=== PATIENT | female | born 1935 | race Caucasian/White ===

== ENCOUNTER → 2016-07-04 | Outpatient (CLI) | payer MEDICARE, MEDICAID ==
[2016-07-04 12:18] LABS: ABSOLUTE EOSINOPHILS # (AUTO) 0.2 10^3/uL (0.0-0.6); ABSOLUTE MONOCYTES (AUTO) 0.5 10^3/uL (0.1-1.4); ABSOLUTE NEUT (AUTO) 3.9 10^3/uL (1.7-8.2); BASOPHILS % (AUTO) 0.5 % (0-2); EOSINOPHILS % (AUTO) 3.1 % (0-6); HEMATOCRIT 31.1 % (36.0-47.0); HEMOGLOBIN 10.6 g/dL (12.0-15.5); HGB HCT DIFFERENCE 0.7; LYMPHOCYTES % (AUTO) 17.2 % (13-45); MEAN CORPUSCULAR HEMOGLOBIN 31.2 pg (27.0-33.4); MEAN CORPUSCULAR HGB CONC 34.1 g/dL (32.0-36.0); MEAN CORPUSCULAR VOLUME 92 fl (80-97); MONOCYTES % (AUTO) 9.6 % (3-13); RED CELL DISTRIBUTION WIDTH 14.6 % (11.5-14.0); SEGMENTED NEUTROPHILS % (AUTO) 69.6 % (42-78); WHITE BLOOD COUNT 5.7 10^3/uL (4.0-10.5)
[2016-07-04 12:22] LABS: APPEARANCE,URINE SLIGHTLY-CLOUDY; BILIRUBIN,URINE NEGATIVE (NEGATIVE); GLUCOSE, URINE >=500 mg/dL (NEGATIVE); KETONES,URINE NEGATIVE (NEGATIVE); LEUKOCYTE ESTERASE,URINE MODERATE (NEGATIVE); NITRITE,URINE NEGATIVE (NEGATIVE); PROTEIN,URINE NEGATIVE (NEGATIVE); URINE SPECIFIC GRAVITY 1.009; UROBILINOGEN,URINE NEGATIVE mg/dL (<2.0)
[2016-07-04 12:38] LABS: ANION GAP 11 (5-19); BLOOD UREA NITROGEN 36 mg/dL (7-20); CARBON DIOXIDE 23 mmol/L (22-30); CHLORIDE 108 mmol/L (98-107); CREATININE RESULT 1.73 mg/dL (0.52-1.25); GLUCOSE 209 mg/dL (75-110); POTASSIUM 4.6 mmol/L (3.6-5.0); SODIUM 142.1 mmol/L (137-145)
[2016-07-05 11:40] LABS: CREATININE URINE 58.8 mg/dL (Not Estab.); MICROALBUMIN URINE 31.3 ug/mL (Not Estab.)
== END ==
LOC: OD 11:17
PROVIDERS: ATTEND Internal Medicine Nephrology
DX: I12.9 Hypertensive chronic kidney disease with stage 1 through stage 4 chronic kidney disease, or unspecified chronic kidney disease (principal); N18.4 Chronic kidney disease, stage 4 (severe); D63.8 Anemia in other chronic diseases classified elsewhere
CPT/HCPCS: 36415; 80048; 81001; 82043; 82570; 85025

== ENCOUNTER → 2016-11-02 | Outpatient (CLI) | payer MEDICARE, MEDICAID ==
[2016-11-02 11:02] LABS: ABSOLUTE BASOPHILS # (AUTO) 0.1 10^3/uL (0.0-0.2); ABSOLUTE EOSINOPHILS # (AUTO) 0.2 10^3/uL (0.0-0.6); ABSOLUTE MONOCYTES (AUTO) 0.5 10^3/uL (0.1-1.4); ABSOLUTE NEUT (AUTO) 3.6 10^3/uL (1.7-8.2); BASOPHILS % (AUTO) 1.1 % (0-2); EOSINOPHILS % (AUTO) 3.1 % (0-6); HEMATOCRIT 33.8 % (36.0-47.0); HEMOGLOBIN 10.9 g/dL (12.0-15.5); HGB HCT DIFFERENCE -1.1; LYMPHOCYTES % (AUTO) 19.5 % (13-45); MEAN CORPUSCULAR HGB CONC 32.2 g/dL (32.0-36.0); MEAN CORPUSCULAR VOLUME 93 fl (80-97); RED BLOOD COUNT 3.64 10^6/uL (3.72-5.28); RED CELL DISTRIBUTION WIDTH 13.9 % (11.5-14.0); SEGMENTED NEUTROPHILS % (AUTO) 66.3 % (42-78); WHITE BLOOD COUNT 5.4 10^3/uL (4.0-10.5)
[2016-11-02 11:06] LABS: APPEARANCE,URINE CLEAR; BILIRUBIN,URINE NEGATIVE (NEGATIVE); GLUCOSE, URINE 150 mg/dL (NEGATIVE); KETONES,URINE NEGATIVE (NEGATIVE); LEUKOCYTE ESTERASE,URINE TRACE (NEGATIVE); NITRITE,URINE NEGATIVE (NEGATIVE); PROTEIN,URINE NEGATIVE (NEGATIVE); UROBILINOGEN,URINE NEGATIVE mg/dL (<2.0)
[2016-11-02 11:07] LABS: URINE SPECIFIC GRAVITY 1.012
[2016-11-02 11:34] LABS: ANION GAP 11 (5-19); BLOOD UREA NITROGEN 30 mg/dL (7-20); CALCIUM 9.1 mg/dL (8.4-10.2); CARBON DIOXIDE 26 mmol/L (22-30); CHLORIDE 104 mmol/L (98-107); CREATININE RESULT 1.61 mg/dL (0.52-1.25); GLUCOSE 199 mg/dL (75-110); POTASSIUM 4.4 mmol/L (3.6-5.0); SODIUM 140.8 mmol/L (137-145)
[2016-11-03 11:39] LABS: CREATININE URINE 87.1 mg/dL (Not Estab.); MICROALBUMIN URINE 46.9 ug/mL (Not Estab.)
== END ==
LOC: OD 09:41
PROVIDERS: ATTEND Internal Medicine Nephrology
DX: N18.4 Chronic kidney disease, stage 4 (severe) (principal); D63.8 Anemia in other chronic diseases classified elsewhere; R80.9 Proteinuria, unspecified
CPT/HCPCS: 36415; 80048; 81001; 82043; 82570; 85025

== ENCOUNTER → 2017-03-09 | Outpatient (CLI) | payer MEDICARE, MEDICAID ==
[2017-03-09 11:00] LABS: ABSOLUTE EOSINOPHILS # (AUTO) 0.2 10^3/uL (0.0-0.6); ABSOLUTE LYMPHOCYTES (AUTO) 1.1 10^3/uL (0.5-4.7); ABSOLUTE MONOCYTES (AUTO) 0.5 10^3/uL (0.1-1.4); ABSOLUTE NEUT (AUTO) 3.2 10^3/uL (1.7-8.2); BASOPHILS % (AUTO) 0.5 % (0-2); EOSINOPHILS % (AUTO) 3.6 % (0-6); HEMATOCRIT 33.1 % (36.0-47.0); HEMOGLOBIN 11.4 g/dL (12.0-15.5); HGB HCT DIFFERENCE 1.1; LYMPHOCYTES % (AUTO) 22.4 % (13-45); MEAN CORPUSCULAR HEMOGLOBIN 31.6 pg (27.0-33.4); MEAN CORPUSCULAR HGB CONC 34.5 g/dL (32.0-36.0); MEAN CORPUSCULAR VOLUME 92 fl (80-97); MONOCYTES % (AUTO) 10.2 % (3-13); RED BLOOD COUNT 3.61 10^6/uL (3.72-5.28); RED CELL DISTRIBUTION WIDTH 14.1 % (11.5-14.0); SEGMENTED NEUTROPHILS % (AUTO) 63.3 % (42-78)
[2017-03-09 11:06] LABS: APPEARANCE,URINE SLIGHTLY-CLOUDY; BILIRUBIN,URINE NEGATIVE (NEGATIVE); GLUCOSE, URINE NEGATIVE (NEGATIVE); KETONES,URINE NEGATIVE (NEGATIVE); LEUKOCYTE ESTERASE,URINE NEGATIVE (NEGATIVE); NITRITE,URINE NEGATIVE (NEGATIVE); PROTEIN,URINE NEGATIVE (NEGATIVE); UROBILINOGEN,URINE NEGATIVE mg/dL (<2.0)
[2017-03-09 11:35] LABS: ALBUMIN 3.8 g/dL (3.5-5.0); ANION GAP 12 (5-19); BLOOD UREA NITROGEN 28 mg/dL (7-20); CARBON DIOXIDE 25 mmol/L (22-30); CHLORIDE 107 mmol/L (98-107); CREATININE RESULT 1.71 mg/dL (0.52-1.25); GLUCOSE 134 mg/dL (75-110); PHOSPHORUS 2.9 mg/dL (2.5-4.5); POTASSIUM 4.5 mmol/L (3.6-5.0); SODIUM 143.5 mmol/L (137-145)
[2017-03-10 12:59] LABS: VITAMIN D 25-HYDROXY 41.6 ng/mL (30.0-100.0)
[2017-03-10 14:38] LABS: MICROALBUMIN URINE 49.7 ug/mL (Not Estab.)
== END ==
LOC: OD 09:50
PROVIDERS: ATTEND Internal Medicine Nephrology
DX: N18.4 Chronic kidney disease, stage 4 (severe) (principal); R80.9 Proteinuria, unspecified; D63.8 Anemia in other chronic diseases classified elsewhere
CPT/HCPCS: 36415; 80048; 81001; 82040; 82043; 82306; 82570; 83970; 84100; 85025

== ENCOUNTER → 2017-09-10 | Outpatient (CLI) | payer MEDICARE, MEDICAID ==
[2017-09-10 12:56] LABS: ABSOLUTE EOSINOPHILS # (AUTO) 0.3 10^3/uL (0.0-0.6); ABSOLUTE LYMPHOCYTES (AUTO) 1.2 10^3/uL (0.5-4.7); ABSOLUTE MONOCYTES (AUTO) 0.6 10^3/uL (0.1-1.4); ABSOLUTE NEUT (AUTO) 3.1 10^3/uL (1.7-8.2); BASOPHILS % (AUTO) 0.9 % (0-2); HEMATOCRIT 31.3 % (36.0-47.0); HEMOGLOBIN 10.6 g/dL (12.0-15.5); LYMPHOCYTES % (AUTO) 23.3 % (13-45); MEAN CORPUSCULAR HEMOGLOBIN 31.2 pg (27.0-33.4); MEAN CORPUSCULAR HGB CONC 33.8 g/dL (32.0-36.0); MEAN CORPUSCULAR VOLUME 92 fl (80-97); MONOCYTES % (AUTO) 10.9 % (3-13); PLATELET COUNT 264 10^3/uL (150-450); SEGMENTED NEUTROPHILS % (AUTO) 58.9 % (42-78); TOTAL CELLS COUNTED % (AUTO) 100 %; WHITE BLOOD COUNT 5.3 10^3/uL (4.0-10.5)
[2017-09-10 13:12] LABS: ANION GAP 15 (5-19); BLOOD UREA NITROGEN 45 mg/dL (7-20); CALCIUM 9.4 mg/dL (8.4-10.2); CARBON DIOXIDE 23 mmol/L (22-30); CHLORIDE 106 mmol/L (98-107); GLUCOSE 97 mg/dL (75-110); POTASSIUM 4.7 mmol/L (3.6-5.0); SODIUM 143.9 mmol/L (137-145)
[2017-09-11 14:40] LABS: CREATININE URINE 125.9 mg/dL (Not Estab.); MICROALBUMIN URINE 23.3 ug/mL (Not Estab.)
== END ==
LOC: OD 12:06
PROVIDERS: ATTEND Internal Medicine Nephrology
DX: N18.4 Chronic kidney disease, stage 4 (severe) (principal); R80.9 Proteinuria, unspecified; D63.8 Anemia in other chronic diseases classified elsewhere
CPT/HCPCS: 36415; 80048; 82043; 82570; 85025

== ENCOUNTER → 2017-09-28 | Outpatient (CLI) | payer MEDICARE, MEDICAID ==
[2017-09-28 11:03] LABS: ANION GAP 11 (5-19); BLOOD UREA NITROGEN 28 mg/dL (7-20); CALCIUM 8.8 mg/dL (8.4-10.2); CARBON DIOXIDE 26 mmol/L (22-30); CHLORIDE 108 mmol/L (98-107); GLUCOSE 97 mg/dL (75-110); POTASSIUM 4.5 mmol/L (3.6-5.0)
== END ==
LOC: OD 09:35
PROVIDERS: ATTEND Internal Medicine Nephrology
DX: N17.9 Acute kidney failure, unspecified (principal)
CPT/HCPCS: 36415; 80048

== ENCOUNTER → 2018-01-02 | Outpatient (CLI) | payer MEDICARE, MEDICAID ==
[2018-01-02 11:30] LABS: ABSOLUTE EOSINOPHILS # (AUTO) 0.3 10^3/uL (0.0-0.6); ABSOLUTE MONOCYTES (AUTO) 0.5 10^3/uL (0.1-1.4); ABSOLUTE NEUT (AUTO) 3.5 10^3/uL (1.7-8.2); BASOPHILS % (AUTO) 0.8 % (0-2); EOSINOPHILS % (AUTO) 4.9 % (0-6); HEMATOCRIT 32.1 % (36.0-47.0); HEMOGLOBIN 10.9 g/dL (12.0-15.5); LYMPHOCYTES % (AUTO) 19.7 % (13-45); MEAN CORPUSCULAR HEMOGLOBIN 31.6 pg (27.0-33.4); MEAN CORPUSCULAR HGB CONC 33.9 g/dL (32.0-36.0); MEAN CORPUSCULAR VOLUME 93 fl (80-97); MONOCYTES % (AUTO) 8.7 % (3-13); PLATELET COUNT 276 10^3/uL (150-450); RED BLOOD COUNT 3.45 10^6/uL (3.72-5.28); RED CELL DISTRIBUTION WIDTH 14.1 % (11.5-14.0); SEGMENTED NEUTROPHILS % (AUTO) 65.9 % (42-78); TOTAL CELLS COUNTED % (AUTO) 100 %; WHITE BLOOD COUNT 5.3 10^3/uL (4.0-10.5)
[2018-01-02 12:06] LABS: ANION GAP 11 (5-19); BLOOD UREA NITROGEN 43 mg/dL (7-20); CALCIUM 9.4 mg/dL (8.4-10.2); CARBON DIOXIDE 22 mmol/L (22-30); CHLORIDE 107 mmol/L (98-107); GLUCOSE 140 mg/dL (75-110); POTASSIUM 4.9 mmol/L (3.6-5.0); SODIUM 140.3 mmol/L (137-145)
[2018-01-03 11:40] LABS: CREATININE URINE 127.6 mg/dL (Not Estab.)
[2018-01-03 12:52] LABS: APPEARANCE,URINE SLIGHTLY HAZY; BILIRUBIN,URINE NEGATIVE (NEGATIVE); COLOR,URINE YELLOW; GLUCOSE, URINE NEGATIVE (NEGATIVE); KETONES,URINE NEGATIVE (NEGATIVE); PROTEIN,URINE 30 mg/dL (NEGATIVE); URINE SPECIFIC GRAVITY 1.017; UROBILINOGEN,URINE NEGATIVE mg/dL (<2.0)
[2018-01-03 12:53] LABS: ADD MANUAL MICROSCOPIC YES; LEUKOCYTE ESTERASE,URINE LARGE (NEGATIVE); NITRITE,URINE NEGATIVE (NEGATIVE); WBC,URINE TOO NUMEROUS TO CNT /HPF
[2018-01-03 12:54] LABS: BACTERIA,URINE 3+ /HPF
== END ==
LOC: OD 10:02
PROVIDERS: ATTEND Internal Medicine Nephrology
DX: N18.4 Chronic kidney disease, stage 4 (severe) (principal); N39.0 Urinary tract infection, site not specified; D63.8 Anemia in other chronic diseases classified elsewhere; I12.9 Hypertensive chronic kidney disease with stage 1 through stage 4 chronic kidney disease, or unspecified chronic kidney disease; E11.22 Type 2 diabetes mellitus with diabetic chronic kidney disease
CPT/HCPCS: 36415; 80048; 81001; 82043; 82570; 85025; 87086; 87088; 87186

== ENCOUNTER → 2018-03-14 | Outpatient (CLI) | payer MEDICARE, MEDICAID ==
[2018-03-14 09:48] LABS: ABSOLUTE BASOPHILS # (AUTO) 0.1 10^3/uL (0.0-0.2); ABSOLUTE EOSINOPHILS # (AUTO) 0.1 10^3/uL (0.0-0.6); ABSOLUTE LYMPHOCYTES (AUTO) 0.7 10^3/uL (0.5-4.7); ABSOLUTE NEUT (AUTO) 7.2 10^3/uL (1.7-8.2); BASOPHILS % (AUTO) 0.7 % (0-2); EOSINOPHILS % (AUTO) 0.7 % (0-6); HEMATOCRIT 29.4 % (36.0-47.0); LYMPHOCYTES % (AUTO) 8.1 % (13-45); MEAN CORPUSCULAR HEMOGLOBIN 31.3 pg (27.0-33.4); MEAN CORPUSCULAR HGB CONC 34.1 g/dL (32.0-36.0); MEAN CORPUSCULAR VOLUME 92 fl (80-97); MONOCYTES % (AUTO) 11.2 % (3-13); PLATELET COUNT 468 10^3/uL (150-450); SEGMENTED NEUTROPHILS % (AUTO) 79.3 % (42-78); TOTAL CELLS COUNTED % (AUTO) 100 %
[2018-03-14 10:10] LABS: ALBUMIN 3.2 g/dL (3.5-5.0); ANION GAP 14 (5-19); BLOOD UREA NITROGEN 44 mg/dL (7-20); CALCIUM 9.2 mg/dL (8.4-10.2); CARBON DIOXIDE 21 mmol/L (22-30); CHLORIDE 102 mmol/L (98-107); GLUCOSE 167 mg/dL (75-110); PHOSPHORUS 3.5 mg/dL (2.5-4.5); POTASSIUM 4.9 mmol/L (3.6-5.0); SODIUM 137.3 mmol/L (137-145)
[2018-03-14 10:14] LABS: APPEARANCE,URINE SLIGHTLY-CLOUDY; BILIRUBIN,URINE NEGATIVE (NEGATIVE); COLOR,URINE YELLOW; GLUCOSE, URINE NEGATIVE (NEGATIVE); KETONES,URINE NEGATIVE (NEGATIVE); LEUKOCYTE ESTERASE,URINE NEGATIVE (NEGATIVE); NITRITE,URINE NEGATIVE (NEGATIVE); PROTEIN,URINE NEGATIVE (NEGATIVE); URINE SPECIFIC GRAVITY 1.014; UROBILINOGEN,URINE NEGATIVE mg/dL (<2.0)
[2018-03-14 14:08] LABS: IRON < 10.1 ug/dL (37-170)
[2018-03-15 11:39] LABS: CREATININE URINE 128.3 mg/dL (Not Estab.); MICROALBUMIN URINE 10.4 ug/mL (Not Estab.)
[2018-03-15 13:41] LABS: IRON(TIBC) < 10.1 ug/dL (37-170)
== END ==
LOC: OD 09:17
PROVIDERS: ATTEND Internal Medicine Nephrology
DX: I12.9 Hypertensive chronic kidney disease with stage 1 through stage 4 chronic kidney disease, or unspecified chronic kidney disease (principal); N18.4 Chronic kidney disease, stage 4 (severe); D63.8 Anemia in other chronic diseases classified elsewhere; R80.9 Proteinuria, unspecified
CPT/HCPCS: 36415; 80048; 81001; 82040; 82043; 82306; 82570; 82728; 83540; 83550; 83970; 84100; 84466; 85025

== ENCOUNTER 2018-03-29 07:31 | Outpatient (CLI) | payer MEDICARE, MEDICAID ==
[~2018-03-29 07:31] MED LIST: FERRIC CARBOXYMALTOSE 750 MG in NORMAL SALINE 100 ML IV PRN; FERRIC CARBOXYMALTOSE 750 MG in NORMAL SALINE 250 ML IV PRN
[2018-03-29 08:30] VITALS: BP 126/57
== END 2018-03-29 09:40 | disposition home or self-care (01) ==
LOC: II 07:31 → 5TH 07:33 → II 09:40
PROVIDERS: ATTEND Internal Medicine Nephrology
PROC: 3E033GC Introduction of Other Therapeutic Substance into Peripheral Vein, Percutaneous Approach (ICD-10-PCS; principal; 2018-03-29)
DX: D50.8 Other iron deficiency anemias (principal)
CPT/HCPCS: 96367; J7050; J1439; 96365

== ENCOUNTER 2018-04-05 07:26 | Outpatient (CLI) | payer MEDICARE, MEDICAID ==
[~2018-04-05 07:26] MED LIST changes: -FERRIC CARBOXYMALTOSE 750 MG in NORMAL SALINE 100 ML IV PRN
[2018-04-05 08:02] VITALS: BP 129/56
== END 2018-04-05 10:45 | disposition home or self-care (01) ==
LOC: II 07:26 → 5TH 08:03 → II 10:45
PROVIDERS: ATTEND Internal Medicine Nephrology
PROC: 3E033GC Introduction of Other Therapeutic Substance into Peripheral Vein, Percutaneous Approach (ICD-10-PCS; principal; 2018-04-05)
DX: D50.8 Other iron deficiency anemias (principal)
CPT/HCPCS: 96367; J7050; J1439; 96365

== ENCOUNTER → 2018-05-16 | Outpatient (CLI) | payer MEDICARE, MEDICAID ==
[2018-05-16 10:58] LABS: ABSOLUTE EOSINOPHILS # (AUTO) 0.2 10^3/uL (0.0-0.6); ABSOLUTE LYMPHOCYTES (AUTO) 0.7 10^3/uL (0.5-4.7); ABSOLUTE MONOCYTES (AUTO) 0.5 10^3/uL (0.1-1.4); ABSOLUTE NEUT (AUTO) 3.7 10^3/uL (1.7-8.2); BASOPHILS % (AUTO) 0.8 % (0-2); EOSINOPHILS % (AUTO) 3.4 % (0-6); HEMATOCRIT 35.2 % (36.0-47.0); HEMOGLOBIN 11.9 g/dL (12.0-15.5); LYMPHOCYTES % (AUTO) 14.3 % (13-45); MEAN CORPUSCULAR HEMOGLOBIN 31.5 pg (27.0-33.4); MEAN CORPUSCULAR HGB CONC 33.9 g/dL (32.0-36.0); MEAN CORPUSCULAR VOLUME 93 fl (80-97); MONOCYTES % (AUTO) 8.9 % (3-13); PLATELET COUNT 222 10^3/uL (150-450); RED BLOOD COUNT 3.79 10^6/uL (3.72-5.28); RED CELL DISTRIBUTION WIDTH 16.8 % (11.5-14.0); SEGMENTED NEUTROPHILS % (AUTO) 72.6 % (42-78); TOTAL CELLS COUNTED % (AUTO) 100 %; WHITE BLOOD COUNT 5.1 10^3/uL (4.0-10.5)
[2018-05-16 11:27] LABS: ALBUMIN 3.9 g/dL (3.5-5.0); ANION GAP 9 (5-19); BLOOD UREA NITROGEN 33 mg/dL (7-20); CALCIUM 8.8 mg/dL (8.4-10.2); CARBON DIOXIDE 27 mmol/L (22-30); CHLORIDE 105 mmol/L (98-107); GLUCOSE 210 mg/dL (75-110); IRON(TIBC) 89.4 ug/dL (37-170); POTASSIUM 3.9 mmol/L (3.6-5.0); SODIUM 140.5 mmol/L (137-145)
[2018-05-17 10:38] LABS: CREATININE URINE 146.1 mg/dL (Not Estab.); MICROALBUMIN URINE 37.6 ug/mL (Not Estab.)
== END ==
LOC: OD 10:17
PROVIDERS: ATTEND Internal Medicine Nephrology
DX: E11.22 Type 2 diabetes mellitus with diabetic chronic kidney disease (principal); I12.9 Hypertensive chronic kidney disease with stage 1 through stage 4 chronic kidney disease, or unspecified chronic kidney disease; N18.4 Chronic kidney disease, stage 4 (severe); D64.9 Anemia, unspecified
CPT/HCPCS: 36415; 80048; 82040; 82043; 82570; 82728; 83540; 83550; 83970; 85025

== ENCOUNTER → 2018-08-28 | Outpatient (CLI) | payer MEDICARE, MEDICAID ==
[2018-08-28 12:23] LABS: ABSOLUTE EOSINOPHILS # (AUTO) 0.1 10^3/uL (0.0-0.6); ABSOLUTE LYMPHOCYTES (AUTO) 0.8 10^3/uL (0.5-4.7); ABSOLUTE MONOCYTES (AUTO) 0.5 10^3/uL (0.1-1.4); ABSOLUTE NEUT (AUTO) 3.3 10^3/uL (1.7-8.2); BASOPHILS % (AUTO) 0.6 % (0-2); EOSINOPHILS % (AUTO) 2.7 % (0-6); HEMATOCRIT 33.5 % (36.0-47.0); HEMOGLOBIN 11.3 g/dL (12.0-15.5); MEAN CORPUSCULAR HEMOGLOBIN 32.3 pg (27.0-33.4); MEAN CORPUSCULAR HGB CONC 33.9 g/dL (32.0-36.0); MEAN CORPUSCULAR VOLUME 96 fl (80-97); PLATELET COUNT 205 10^3/uL (150-450); RED BLOOD COUNT 3.51 10^6/uL (3.72-5.28); RED CELL DISTRIBUTION WIDTH 13.7 % (11.5-14.0); SEGMENTED NEUTROPHILS % (AUTO) 69.7 % (42-78); TOTAL CELLS COUNTED % (AUTO) 100 %; WHITE BLOOD COUNT 4.8 10^3/uL (4.0-10.5)
[2018-08-28 12:36] LABS: APPEARANCE,URINE CLOUDY; BILIRUBIN,URINE NEGATIVE (NEGATIVE); COLOR,URINE YELLOW; GLUCOSE, URINE 50 mg/dL (NEGATIVE); KETONES,URINE NEGATIVE (NEGATIVE); LEUKOCYTE ESTERASE,URINE LARGE (NEGATIVE); NITRITE,URINE NEGATIVE (NEGATIVE); PROTEIN,URINE NEGATIVE (NEGATIVE); URINE SPECIFIC GRAVITY 1.016; UROBILINOGEN,URINE NEGATIVE mg/dL (<2.0)
[2018-08-28 12:48] LABS: ALBUMIN 3.6 g/dL (3.5-5.0); ANION GAP 11 (5-19); BLOOD UREA NITROGEN 42 mg/dL (7-20); CALCIUM 8.5 mg/dL (8.4-10.2); CARBON DIOXIDE 24 mmol/L (22-30); CHLORIDE 108 mmol/L (98-107); GLUCOSE 178 mg/dL (75-110); IRON(TIBC) 103.4 ug/dL (37-170); PHOSPHORUS 2.8 mg/dL (2.5-4.5); POTASSIUM 3.9 mmol/L (3.6-5.0); SODIUM 142.5 mmol/L (137-145)
[2018-08-29 09:38] LABS: CREATININE URINE 127.9 mg/dL (Not Estab.); MICROALBUMIN URINE 72.9 ug/mL (Not Estab.)
== END ==
LOC: OD 11:55
PROVIDERS: ATTEND Internal Medicine Nephrology
DX: I12.9 Hypertensive chronic kidney disease with stage 1 through stage 4 chronic kidney disease, or unspecified chronic kidney disease (principal); N18.4 Chronic kidney disease, stage 4 (severe); D63.1 Anemia in chronic kidney disease; E11.22 Type 2 diabetes mellitus with diabetic chronic kidney disease; E55.9 Vitamin D deficiency, unspecified
CPT/HCPCS: 36415; 80069; 81001; 82043; 82306; 82570; 82728; 83540; 83550; 83970; 85025

== ENCOUNTER 2018-12-04 16:35 | Inpatient (IN) | payer MEDICARE, MEDICAID ==
--- NOTE | 2018-12-04 17:29 | ER Document Report ---
ED Medical Screen (RME) - General Chief Complaint: Abnormal Lab Results Stated Complaint: ABNORMAL LABS Time Seen by Provider: 12/04/18 17:24 Primary Care Provider: ANNA SANDHU MD [Primary Care Provider] - Follow up as needed Mode of Arrival: Ambulatory Information source: Patient Notes: This 83-year-old female presents emergency department because Dr. Sandhu told her to come over. Reported her labs were elevated. BUN 86 creatinine 3.06. Patient reports she has an urgency and frequency of urination but otherwise feels fine. Patient has stage IV kidney disease. She denies other symptoms such as fever vomiting diarrhea. Patient reports she just returned from [place] after being there for 2 weeks. No complaints at this time. Should not is in good spirits no distress. I have greeted and performed a rapid initial assessment of this patient. A comprehensive ED assessment and evaluation of the patient, analysis of test results and completion of the medical decision making process will be conducted by additional ED providers. Dictation of this chart was performed using voice recognition software; therefore, there may be some unintended grammatical errors. TRAVEL OUTSIDE OF THE [place] IN LAST 30 DAYS: No - Related Data Allergies/Adverse Reactions: ceftriaxone sodium [From Rocephin] Allergy (Severe, Verified 12/04/18 16:39) neomycin [Neomycin] Allergy (Severe, Verified 12/04/18 16:39) nitrofurantoin [From Macrobid] Allergy (Severe, Verified 12/04/18 16:39) Sulfa (Sulfonamide Antibiotics) Allergy (Severe, Verified 12/04/18 16:39) Past Medical History - Past Medical History Cardiac Medical History: Reports: Hx Coronary Artery Disease, Hx Hypertension Denies: Hx Heart Attack Pulmonary Medical History: Reports: Hx Asthma, Hx Bronchitis, Hx COPD Denies: Hx Pneumonia Neurological Medical History: Denies: Hx Cerebrovascular Accident, Hx Seizures Musculoskeltal Medical History: Reports Hx Arthritis Psychiatric Medical History: Reports: Hx Depression - d/t loss of son Past Surgical History: Reports: Hx Hysterectomy - Immunizations Hx Diphtheria, Pertussis, Tetanus Vaccination: Yes Physical Exam - Vital signs Vitals: Temp Pulse Resp BP Pulse Ox 98.1 F 88 16 121/53 L 93 12/04/18 16:52 12/04/18 16:52 12/04/18 16:52 12/04/18 16:52 12/04/18 16:52 Course - Vital Signs Vital signs: Temp Pulse Resp BP Pulse Ox 98.1 F 88 16 121/53 L 93 12/04/18 16:52 12/04/18 16:52 12/04/18 16:52 12/04/18 16:52 12/04/18 16:52 Doctor's Discharge - Discharge Referrals: ANNA SANDHU MD [Primary Care Provider] - Follow up as needed
[2018-12-04 17:53] LABS: ABSOLUTE BASOPHILS # (AUTO) 0.1 10^3/uL (0.0-0.2); ABSOLUTE EOSINOPHILS # (AUTO) 0.4 10^3/uL (0.0-0.6); ABSOLUTE LYMPHOCYTES (AUTO) 1.2 10^3/uL (0.5-4.7); ABSOLUTE MONOCYTES (AUTO) 0.8 10^3/uL (0.1-1.4); EOSINOPHILS % (AUTO) 6.7 % (0-6); HEMATOCRIT 34.1 % (36.0-47.0); HEMOGLOBIN 11.3 g/dL (12.0-15.5); MEAN CORPUSCULAR HEMOGLOBIN 31.1 pg (27.0-33.4); MEAN CORPUSCULAR HGB CONC 33.2 g/dL (32.0-36.0); MEAN CORPUSCULAR VOLUME 94 fl (80-97); MONOCYTES % (AUTO) 14.5 % (3-13); PLATELET COUNT 236 10^3/uL (150-450); RED BLOOD COUNT 3.64 10^6/uL (3.72-5.28); RED CELL DISTRIBUTION WIDTH 13.8 % (11.5-14.0); SEGMENTED NEUTROPHILS % (AUTO) 54.8 % (42-78); TOTAL CELLS COUNTED % (AUTO) 100 %; WHITE BLOOD COUNT 5.4 10^3/uL (4.0-10.5)
[2018-12-04 18:09] LABS: APPEARANCE,URINE SLIGHTLY-CLOUDY; BILIRUBIN,URINE NEGATIVE (NEGATIVE); COLOR,URINE YELLOW; GLUCOSE, URINE NEGATIVE (NEGATIVE); KETONES,URINE NEGATIVE (NEGATIVE); LEUKOCYTE ESTERASE,URINE TRACE (NEGATIVE); NITRITE,URINE NEGATIVE (NEGATIVE); PROTEIN,URINE NEGATIVE (NEGATIVE); URINE SPECIFIC GRAVITY 1.016; UROBILINOGEN,URINE NEGATIVE mg/dL (<2.0)
[2018-12-04 18:15] LABS: ALBUMIN 4.1 g/dL (3.5-5.0); ALKALINE PHOSPHATASE 65 U/L (38-126); ANION GAP 14 (5-19); ASPARTATE AMINO TRANSFERASE 29 U/L (14-36); BILIRUBIN,DIRECT 0.4 mg/dL (0.0-0.4); BILIRUBIN,TOTAL 0.4 mg/dL (0.2-1.3); BLOOD UREA NITROGEN 91 mg/dL (7-20); CALCIUM 9.5 mg/dL (8.4-10.2); CARBON DIOXIDE 26 mmol/L (22-30); CHLORIDE 102 mmol/L (98-107); GLUCOSE 161 mg/dL (75-110); POTASSIUM 4.4 mmol/L (3.6-5.0); TOTAL PROTEIN 6.5 g/dL (6.3-8.2)
--- NOTE | 2018-12-04 18:19 | ER Document Report ---
ED General - General Chief Complaint: Abnormal Lab Results Stated Complaint: ABNORMAL LABS Time Seen by Provider: 12/04/18 17:24 Primary Care Provider: ANNA SANDHU MD [ACTIVE STAFF] - Follow up as needed Mode of Arrival: Ambulatory TRAVEL OUTSIDE OF THE [place] IN LAST 30 DAYS: No - Related Data Allergies/Adverse Reactions: ceftriaxone sodium [From Rocephin] Allergy (Severe, Verified 12/04/18 16:39) neomycin [Neomycin] Allergy (Severe, Verified 12/04/18 16:39) nitrofurantoin [From Macrobid] Allergy (Severe, Verified 12/04/18 16:39) Sulfa (Sulfonamide Antibiotics) Allergy (Severe, Verified 12/04/18 16:39) Past Medical History - General Information source: Patient - Social History Smoking Status: Former Smoker Chew tobacco use (# tins/day): No Frequency of alcohol use: None Drug Abuse: None Family History: None Patient has suicidal ideation: No Patient has homicidal ideation: No - Past Medical History Cardiac Medical History: Reports: Hx Coronary Artery Disease, Hx Hypercholesterolemia, Hx Hypertension Denies: Hx Heart Attack Pulmonary Medical History: Reports: Hx Asthma, Hx Bronchitis, Hx COPD Denies: Hx Pneumonia Neurological Medical History: Denies: Hx Cerebrovascular Accident, Hx Seizures Endocrine Medical History: Reports: Hx Diabetes Mellitus Type 2 Renal/ Medical History: Reports: Hx End Stage Renal Disease - stg 4. Denies: Hx Peritoneal Dialysis GI Medical History: Reports: Hx Gastroesophageal Reflux Disease Musculoskeletal Medical History: Reports Hx Arthritis Psychiatric Medical History: Reports: Hx Depression - d/t loss of son Past Surgical History: Reports: Hx Section, Hx Hysterectomy, Hx Ortho pedic Surgery - Immunizations Hx Diphtheria, Pertussis, Tetanus Vaccination: Yes Hx Pneumococcal Vaccination: 02/29/12 Review of Systems - Review of Systems Notes: REVIEW OF SYSTEMS: CONSTITUTIONAL: -fevers, -chills EENT: -eye pain, -difficulty swallowing, -nasal congestion CARDIOVASCULAR: -chest pain, -syncope. RESPIRATORY: -cough, -SOB GASTROINTESTINAL: -abdominal pain, -nausea, -vomiting, -diarrhea GENITOURINARY: -dysuria, -hematuria MUSCULOSKELETAL: -back pain, -neck pain SKIN: -rash or skin lesions. HEMATOLOGIC: -easy bruising or bleeding. LYMPHATIC: -swollen, enlarged glands. NEUROLOGICAL: -altered mental status or loss of consciousness, -headache, -neur ologic symptoms PSYCHIATRIC: -anxiety, -depression. ALL OTHER SYSTEMS REVIEWED AND NEGATIVE. Insert my Physical Exam - Vital signs Vitals: Temp Pulse Resp BP Pulse Ox 98.1 F 88 16 121/53 L 93 12/04/18 16:52 12/04/18 16:52 12/04/18 16:52 12/04/18 16:52 12/04/18 16:52 - Notes Notes: PHYSICAL EXAMINATION: GENERAL: Well-appearing, well-nourished and in no acute distress. HEAD: Atraumatic, normocephalic. EYES: Pupils equal round and reactive to light, extraocular movements intact, sclera anicteric, conjunctiva are normal. ENT: nares patent, oropharynx clear without exudates. Moist mucous membranes. NECK: Normal range of motion, supple without lymphadenopathy LUNGS: Breath sounds clear to auscultation bilaterally and equal. No wheezes rales or rhonchi. HEART: Regular rate and rhythm without murmurs ABDOMEN: Soft, nontender, normoactive bowel sounds. No guarding, no rebound. No masses appreciated. EXTREMITIES: Normal range of motion, no pitting or edema. No cyanosis. NEUROLOGICAL: Cranial nerves grossly intact. Normal speech, normal gait. Normal sensory and motor exams. PSYCH: Normal mood, normal affect. SKIN: Warm, Dry, normal turgor, no rashes or lesions noted. Course - Re-evaluation Re-evalutation: 83-year-old female presents with no real complaints. Patient had outpatient labs that showed profound elevation in creatinine. Patient's creatinine normally runs 2.0. Today her creatinine is near 3.5. Patient also has profound elevation in BUN. Could have most likely prerenal kidney injury. Patient is correlating this with a vacation where she was eating a great deal of salty foods put in a great deal of water weight. When she returned she was placed on Lasix by her family doctor. Patient took her last dose of Lasix approximately 24 hours ago. She will be admitted to the hospital for fluid resuscitation. Further management close monitoring. 12/04/18 18:31 - Vital Signs Vital signs: Temp Pulse Resp BP Pulse Ox 98.1 F 88 16 121/53 L 93 12/04/18 16:52 12/04/18 16:52 12/04/18 16:52 12/04/18 16:52 12/04/18 16:52 - Laboratory Result Diagrams: 12/04/18 17:39 12/04/18 17:39 Laboratory results interpreted by me: 12/04/18 12/04/18 12/04/18 17:39 17:39 17:40 RBC 3.64 L Hgb 11.3 L Hct 34.1 L Monocytes % 14.5 H Eosinophils % 6.7 H BUN 91 H Creatinine 3.24 H Est GFR ( Amer) 17 L Est GFR (Non-Af Amer) 14 L Glucose 161 H Ur Leukocyte Esterase TRACE H Discharge - Discharge Clinical Impression: RUBÉN (acute kidney injury) Condition: Stable Disposition: ADMITTED INPATIENT Admitting Provider: Kory (Hospitalist) Referrals: ANNA SANDHU MD [ACTIVE STAFF] - Follow up as needed
[2018-12-04] MEDS ORDERED: NORMAL SALINE 1000 ML 1,000 ML IV ONE ×2 (18:22→18:33)
[2018-12-04] MEDS ORDERED: FLUTICASONE NASAL SPRAY 50 MCG/SPRY 120 SPRAY/16 GM NAREB PRN (21:06)
[2018-12-04] MEDS ORDERED: IPRATROPIUM/ALBUTEROL 0.5-2.5 MG/3 ML AMPUL NEB PRN (21:06)
[2018-12-04] MEDS ORDERED: ONDANSETRON HCL INJ/PF 4 MG/2 ML SDV IV PRN (21:15)
[2018-12-04] MEDS ORDERED: MAG HYDROX/AL HYDROX/SIMETH SUSP 30 ML UDCUP PO PRN (21:15)
[2018-12-04] MEDS ORDERED: MAGNESIUM HYDROXIDE SUSP 30 ML UDCUP PO PRN (21:15)
[2018-12-04] MEDS ORDERED: DEXTROSE 50%-WATER 25 GM/50 ML DISP.SYRIN IV PRN ×2 (21:19)
[2018-12-04] MEDS ORDERED: DEXTROSE 40% GEL 15 GM TUBE PO PRN ×2 (21:19)
[2018-12-04] MEDS ORDERED: HYDRALAZINE HCL INJ/PF 20 MG/1 ML SDV IV PRN (21:19)
[2018-12-04] MEDS ORDERED: ACETAMINOPHEN 325 MG TABLET PO PRN (21:19)
[2018-12-04] MEDS ORDERED: GLUCAGON,HUMAN RECOMB 1 MG INJ IM PRN (21:19)
[2018-12-04] MEDS ORDERED: INSULIN REG, HUMAN 100 UNIT/ML 3 ML VIAL (PYX) SUBCUT PRN (21:19)
[2018-12-04] MEDS ORDERED: SIMVASTATIN 40 MG TABLET PO SCH (22:00)
[2018-12-04 22:07] LABS: FREE T3 2.76 pg/mL (2.77-5.27); FREE T4 (FREE THYROXINE) 1.1 ng/dL (0.78-2.19)
[2018-12-04 22:21] LABS: THYROID STIMULATING HORMONE 4.04 uIU/mL (0.47-4.68)
[2018-12-04] MEDS: ZOLPIDEM TARTRATE 5 MG TABLET PO SCH (22:41)
[2018-12-04] MEDS: SIMVASTATIN 10 MG TABLET PO SCH (22:41)
[2018-12-04] MEDS: HEPARIN SOD (PORCINE) 5,000 UNIT/ML 1 ML VIAL SUBCUT SCH (22:42)
[2018-12-04] MEDS: TAMOXIFEN CITRATE 10 MG TABLET PO SCH (22:42)
[2018-12-04] MEDS: RINGERS SOLUTION,LACTATED 1,000 ML IV PRN (23:03)
--- NOTE | 2018-12-05 00:36 | PDOC H&P ---
History of Present Illness Admission Date/PCP: 12/04/18 19:30 DALLAS SHORT MD Patient complains of: Abnormal laboratory values History of Present Illness: EVE PATRICIO is a 83 year old female who presented to the emergency room at the request of Dr. Yonug who phoned her telling her to come to the ER because of her abnormal laboratory values (elevation of BUN and creatinine). Patient admits mild generalized fatigue accompanying mild urinary urgency and frequency but denies all other acute symptoms. Patient admits that she has chronic stage IV kidney disease and follows with Dr. Young on a regular basis. Dr. Young informed her that her BUN was 86 and her creatinine was 3.06 both of which were elevated significantly above her previous values. The patient recently returned from a 2-week trip to [place] and admits having enjoyed a good deal of high salt content food while she was on vacation. Upon her return her primary care provider, Dr. Short, treated her with Lasix for the peripheral edema (bilateral lower extremities) which she had developed. She took her last dose of Lasix this morning prior to coming to the emergency room this afternoon. She denies prior similar episodes and has not identified any other contributing, aggravating or ameliorating factors for her abnormal renal functions. In the emergency room she was found to have an elevated BUN and creatinine and at Dr. Young's request she will be admitted to the hospital for further evaluation and treatment. Past Medical History Cardiac Medical History: Reports: Coronary Artery Disease, Hyperlipidema, Hypertension Denies: Myocardial Infarction Pulmonary Medical History: Reports: Asthma, Bronchitis, Chronic Obstructive Pulmonary Disease (COPD) Denies: Pneumonia EENT Medical History: Reports: Ears - Hearing aids, Nose - Allergic rhinitis Denies: Cataracts Neurological Medical History: Denies: Hemorrhagic CVA, Ischemic CVA, Seizures Endocrine Medical History: Reports: Diabetes Mellitus Type 2, Hypothyroidism, Obesity Denies: Diabetes Mellitus Type 1, Hyperthyroidism Renal/ Medical History: Reports: Chronic Kidney Disease Denies: Nephrolithiasis Malignancy Medical History: Reports: Breast Cancer - Left breast GI Medical History: Reports: Gastroesophageal Reflux Disease Denies: Cirrhosis, Crohn's Disease, Hepatitis, Ulcerative Colitis Musculoskeltal Medical History: Reports: Arthritis Denies: Fibromyalgia, Gout Skin Medical History: Denies: Eczema, Psoriasis Psychiatric Medical History: Reports: Depression - d/t loss of son, Tobacco Dependency Denies: Alcohol Dependency, Substance Abuse Traumatic Medical History: Reports: None Hematology: Reports: Anemia - Chronic kidney disease Denies: Bleeding Tendencies Infectious Medical History: Reports: None Past Surgical History Past Surgical History: Reports: Section - X2, Hysterectomy, Mastectomy - Left breast cancer: Left lumpectomy and lymph node dissection, Orthopedic Surgery - Toes of left foot Social History Information Source: Patient Lives with: Friend Smoking Status: Former Smoker Frequency of Alcohol Use: None Hx Recreational Drug Use: No Drugs: None Hx Prescription Drug Abuse: No - Advance Directive Resuscitation Status: Full Code Surrogate healthcare decision maker:: Gwendolyn Sabasyd Family History Family History: CAD, DM, Hypertension, Malignancy Parental Family History Reviewed: Yes Children Family History Reviewed: No Sibling(s) Family History Reviewed.: Yes Medication/Allergy Home Medications: Zolpidem Tartrate 5 mg PO QHS 11/15/12 Simvastatin 20 mg PO DAILY 09/29/13 Ascorbic Acid [Vitamin C 500 mg Tablet] 500 mg PO DAILY 02/20/14 Mometasone Furoate [Nasonex] 1 spray NAREB DAILY 02/23/14 Amlodipine Besylate [Norvasc 2.5 mg Tablet] 2.5 mg PO DAILY MDD *please see comments* 06/11/15 Tamoxifen Citrate 10 mg PO Q12 06/11/15 Cholecalciferol (Vitamin D3) [Vitamin D3 1000 Unit Tablet] 1,000 unit PO DAILY 12/04/18 Cyanocobalamin (Vitamin B-12) [Vitamin B-12 1000 Mcg Tablet] 1,000 mcg PO DAILY 12/04/18 Fluticasone Propionate [Flonase Nasal Chambers 50 Mcg/Chambers 16 gm] 1 spray NAREB DAILYP PRN 12/04/18 Furosemide [Lasix 40 mg Tablet] 40 mg PO DAILY 12/04/18 Glimepiride [Amaryl 1 mg Tablet] 1 mg PO DAILY 12/04/18 Ipratropium/Albuterol Sulfate [Duoneb 3 ml Ampul] 3 ml NEB [id number] PRN 12/04/18 Levothyroxine Sodium [Synthroid 0.025 mg Tablet] 0.025 mg PO Q6AM 12/04/18 Losartan/Hydrochlorothiazide [Losartan-Hctz 50-12.5 mg Tab] 1 each PO DAILY 12/04/18 Meloxicam [Mobic 15 mg Tablet] 15 mg PO DAILY 12/04/18 Nystatin [Nystop] 1 applic TOP BIDP PRN 12/04/18 Pantoprazole Sodium [Protonix [address] Tablet] 40 mg PO QAM 12/04/18 Potassium Chloride [Klor-Con 10 Meq Capsule ER] 10 meq PO DAILY 12/04/18 Tiotropium [place] [Spiriva Respimat] 2 inh IH DAILY 12/04/18 Allergies/Adverse Reactions: ceftriaxone sodium [From Rocephin] Allergy (Severe, Verified 12/04/18 16:39) neomycin [Neomycin] Allergy (Severe, Verified 12/04/18 16:39) nitrofurantoin [From Macrobid] Allergy (Severe, Verified 12/04/18 16:39) Sulfa (Sulfonamide Antibiotics) Allergy (Severe, Verified 12/04/18 16:39) Review of Systems Constitutional: PRESENT: as per HPI, fatigue. ABSENT: chills, fever(s) Eyes: ABSENT: visual disturbances, other - Eye pain Ears: ABSENT: hearing changes, other - Ear pain Nose, Mouth, and Throat: ABSENT: mouth pain, sore throat Cardiovascular: PRESENT: as per HPI, edema. ABSENT: chest pain, dyspnea on exertion, orthropnea, palpitations Respiratory: ABSENT: cough, dyspnea Gastrointestinal: ABSENT: abdominal pain, constipation, diarrhea, nausea, vomiting Genitourinary: PRESENT: as per HPI, other - Urinary urgency and frequency. ABSENT: dysuria, hematuria Musculoskeletal: ABSENT: back pain, joint swelling, muscle weakness Integumentary: ABSENT: pruritus, rash Neurological: ABSENT: confusion, convulsions, focal weakness, memory loss, syncope Psychiatric: ABSENT: anxiety, depression Endocrine: ABSENT: cold intolerance, heat intolerance Hematologic/Lymphatic: ABSENT: easy bleeding, easy bruising Allergic/Immunologic: ABSENT: seasonal rhinorrhea Physical Exam Vital Signs: Temp Pulse Resp BP Pulse Ox 98.1 F 76 18 101/66 93 12/04/18 16:52 12/04/18 18:54 12/04/18 18:31 12/04/18 18:31 12/04/18 18:31 Intake & Output 12/02/18 12/03/18 12/04/18 23:59 23:59 23:59 Weight 69.4 kg General appearance: PRESENT: no acute distress, cooperative, obese Head exam: PRESENT: atraumatic, normocephalic Eye exam: PRESENT: conjunctiva pink. ABSENT: conjunctival injection, scleral icterus Ear exam: PRESENT: normal external ear exam. ABSENT: bleeding, drainage Mouth exam: PRESENT: dry mucosa, neck supple Neck exam: ABSENT: JVD, thyromegaly, tracheal deviation Respiratory exam: PRESENT: clear to auscultation danielle, symmetrical, unlabored Cardiovascular exam: PRESENT: RRR. ABSENT: clicks, gallop, rubs Pulses: PRESENT: normal radial pulses, normal dorsalis pedis pul GI/Abdominal exam: PRESENT: normal bowel sounds, soft. ABSENT: tenderness Rectal exam: PRESENT: deferred Extremities exam: ABSENT: joint swelling, pedal edema Musculoskeletal exam: PRESENT: full ROM, normal inspection. ABSENT: tenderness Neurological exam: PRESENT: alert, oriented to person, oriented to place, oriented to time, oriented to situation, CN II-XII grossly intact. ABSENT: motor sensory deficit Psychiatric exam: PRESENT: appropriate affect, normal mood Skin exam: PRESENT: dry, intact, warm. ABSENT: jaundice, rash, urticaria Results Laboratory Results: 12/04/18 17:39 12/04/18 17:39 12/04/18 12/04/18 12/04/18 17:39 17:39 17:40 WBC 5.4 RBC 3.64 L Hgb 11.3 L Hct 34.1 L MCV 94 MCH 31.1 MCHC 33.2 RDW 13.8 Plt Count 236 Seg Neutrophils % 54.8 Lymphocytes % 23.0 Monocytes % 14.5 H Eosinophils % 6.7 H Basophils % 1.0 Absolute Neutrophils 3.0 Absolute Lymphocytes 1.2 Absolute Monocytes 0.8 Absolute Eosinophils 0.4 Absolute Basophils 0.1 Sodium 141.6 Potassium 4.4 Chloride 102 Carbon Dioxide 26 Anion Gap 14 BUN 91 H Creatinine 3.24 H Est GFR ( Amer) 17 L Est GFR (Non-Af Amer) 14 L Glucose 161 H Calcium 9.5 Total Bilirubin 0.4 AST 29 Alkaline Phosphatase 65 Total Protein 6.5 Albumin 4.1 Urine Color YELLOW Urine Appearance SLIGHTLY-CLOUDY Urine pH 5.0 Ur Specific [place] 1.016 Urine Protein NEGATIVE Urine Glucose (UA) NEGATIVE Urine Ketones NEGATIVE Urine Blood NEGATIVE Urine Nitrite NEGATIVE Ur Leukocyte Esterase TRACE H Urine WBC (Auto) 8 Urine RBC (Auto) 3 12/04/18 12/04/18 17:39 19:04 Troponin I < 0.012 NT-Pro-B Natriuret Pep 611 H Assessment and Plan - Diagnosis (1) Acute kidney injury superimposed on chronic kidney disease Is this a current diagnosis for this admission?: Yes Plan: Patient will be treated with IV fluids and observe closely on a telemetry bed. Daily CBCs, metabolic profiles and magnesium levels will be followed as part of her therapeutic evaluation. (2) Hypertension Qualifiers: Hypertension type: essential hypertension Qualified Code(s): I10 - Essential (primary) hypertension Is this a current diagnosis for this admission?: Yes Plan: Patient will be continued on her current antihypertensive regiment with modifications made appropriate for her acute renal insufficiency. Her blood pressure be monitored closely throughout her hospital course. (3) Hyperlipidemia Qualifiers: Hyperlipidemia type: unspecified Qualified Code(s): E78.5 - Hyperlipidemia, unspecified Is this a current diagnosis for this admission?: Yes Plan: A lipid profile will be obtained to assess current therapy, which will be continued during her hospital course. (4) Diabetes mellitus type 2 in obese Is this a current diagnosis for this admission?: Yes Plan: A hemoglobin A1c will be obtained to assess current therapy. Patient will be continued on her current medications and a diabetic diet with modifications only as needed for adjustment for acute renal failure. Before meals and at bedtime blood sugars will be obtained and hyperglycemia will be treated with sliding scale insulin and a hypoglycemic protocol will be in place. (5) COPD (chronic obstructive pulmonary disease) Qualifiers: COPD type: unspecified COPD Qualified Code(s): J44.9 - Chronic obstructive pulmonary disease, unspecified Is this a current diagnosis for this admission?: Yes Plan: Patient will be continued on her current regiment for COPD and her respiratory status will be evaluated closely during her hospital status with frequent checks of her oxygen saturation and vital signs. - Time Time Spent with patient: 25-34 minutes Medications reviewed and adjusted accordingly: Yes Anticipated discharge: Home - Inpatient Certification Based on my medical assessment, after consideration of the patient's comorbidities, presenting symptoms, or acuity I expect that the services needed warrant INPATIENT care.: Yes I certify that my determination is in accordance with my understanding of Medicare's requirements for reasonable and necessary INPATIENT services [42 CFR 412.3e].: Yes Medical Necessity: Significant Comorbidiites Make Outpatient Treatment Too Risky, Need Close Monitoring Due to Risk of Patient Decompensation, Need For IV Fluids, Need For Continuous Telemetry Monitoring, Risk of Complication if Not Cared For in Hospital
--- NOTE | 2018-12-05 00:39 | ADVANCED CARE ---
- Diagnosis (1) Acute kidney injury superimposed on chronic kidney disease Diagnosis Current: Yes (2) Hypertension Diagnosis Current: Yes (3) Hyperlipidemia Diagnosis Current: Yes (4) Diabetes mellitus type 2 in obese Diagnosis Current: Yes (5) COPD (chronic obstructive pulmonary disease) Diagnosis Current: Yes Attendance: The patient and myself. Resuscitation Status: Full Code Discussion: After brief discussion the patient admitted that she would prefer to be a full code for resuscitation status throughout this admission. Additionally she has named Gwendolyn Vance as her designated surrogate medical decision-maker. Care Planning Goals: 1. Patient will be full CODE STATUS throughout this admission. 2. Gwendolyn Woodard is the patient's designated surrogate medical decision-maker Document(s) Completed: Following entries will be made into the patient's permanent medical record, current medical record and current orders via EMR entry: 1. Patient will be full CODE STATUS throughout this admission. 2. Gwendolyn Vance is the patient's designated surrogate medical decision-maker Time Spent: 16 minutes
[2018-12-05] MEDS: LEVALBUTEROL HCL NEB 1.25 MG/3 ML AMPUL NEB PRN ×2 (05:26→13:32)
[2018-12-05] MEDS: IPRATROPIUM BROMIDE 0.02% NEB 0.5 MG/2.5 ML AMPUL NEB PRN ×2 (05:39→13:32)
[2018-12-05 06:03] LABS: HEMATOCRIT 27.6 % (36.0-47.0); HEMOGLOBIN 9.5 g/dL (12.0-15.5); MEAN CORPUSCULAR HGB CONC 34.2 g/dL (32.0-36.0); MEAN CORPUSCULAR VOLUME 94 fl (80-97); PLATELET COUNT 183 10^3/uL (150-450); RED BLOOD COUNT 2.95 10^6/uL (3.72-5.28); RED CELL DISTRIBUTION WIDTH 13.8 % (11.5-14.0); WHITE BLOOD COUNT 4.7 10^3/uL (4.0-10.5)
[2018-12-05] MEDS: LEVOTHYROXINE SODIUM 0.025 MG TABLET PO SCH (06:08)
[2018-12-05] MEDS: HEPARIN SOD (PORCINE) 5,000 UNIT/ML 1 ML VIAL SUBCUT SCH ×3 (06:09→21:09)
[2018-12-05 06:13] LABS: ANION GAP 7 (5-19); BLOOD UREA NITROGEN 74 mg/dL (7-20); CALCIUM 8.5 mg/dL (8.4-10.2); CARBON DIOXIDE 23 mmol/L (22-30); CHLORIDE 111 mmol/L (98-107); CHOLESTEROL 103.11 mg/dL (0-200); GLUCOSE 95 mg/dL (75-110); POTASSIUM 4.3 mmol/L (3.6-5.0); TRIGLYCERIDES 167 mg/dL (<150)
[2018-12-05 06:23] LABS: DIRECT LDL 54 mg/dL (<100)
[2018-12-05 06:26] LABS: VLDL CHOLESTEROL 33.4 mg/dL (10-31)
[2018-12-05] MEDS: RINGERS SOLUTION,LACTATED 1,000 ML IV PRN (08:48)
[2018-12-05] MEDS: ASCORBIC ACID 500 MG TABLET PO SCH (09:03)
[2018-12-05] MEDS: DOCUSATE SODIUM 100 MG/10 ML UDC PO SCH ×2 (09:03→17:21)
[2018-12-05] MEDS: TIOTROPIUM BROMIDE DPI 5 CAP/KIT (18 MCG/CAP) IH SCH (09:24)
[2018-12-05] MEDS: CYANOCOBALAMIN (VITAMIN B-12) 1,000 MCG TABLET PO SCH (09:27)
[2018-12-05] MEDS: CHOLECALCIFEROL (D3) 1,000 UNIT (25 MCG) TABLET PO SCH (09:28)
[2018-12-05] MEDS: TAMOXIFEN CITRATE 10 MG TABLET PO SCH ×2 (09:28→21:09)
[2018-12-05] MEDS: LOSARTAN POTASSIUM 50 MG TABLET PO SCH (09:28)
[2018-12-05] MEDS: GLIMEPIRIDE 1 MG TABLET PO SCH (09:28)
[2018-12-05] MEDS: PANTOPRAZOLE SODIUM 40 MG TABLET.DR PO SCH (09:28)
[2018-12-05] MEDS: AMLODIPINE BESYLATE 2.5 MG TABLET PO SCH (09:29)
--- NOTE | 2018-12-05 10:00 | Progress Note ---
Provider Note Provider Note: Patient admitted early a.m. I have evaluated patient's labs and added 2 g IV magnesium to patient's medications. We will repeat magnesium level in a.m. continue all other current treatment as before and await a.m. renal panel.
[2018-12-05] MEDS: MAGNESIUM SULFATE/D5W 1 GM/100 ML RTUPB IV SCH ×2 (10:59→12:56)
[2018-12-05] MEDS ORDERED: RINGERS SOLUTION,LACTATED 1,000 ML IV PRN (11:52)
--- NOTE | 2018-12-05 13:08 | PDOC PROGRESS REPORT ---
Subjective Progress Note for:: 12/05/18 Subjective:: No complaints at this time Reason For Visit: ACUTE RENAL INSUFFICIENCY ON CHRONIC KIDNEY Physical Exam Vital Signs: Temp Pulse Resp BP Pulse Ox 97.6 F 73 15 118/53 L 92 12/05/18 07:21 12/05/18 07:21 12/05/18 07:21 12/05/18 07:21 12/05/18 07:21 Intake & Output 12/04/18 12/05/18 12/06/18 06:59 06:59 06:59 Intake Total 2440 1100 Balance 2440 1100 Weight 69.4 kg General appearance: PRESENT: no acute distress, well-developed, well-nourished Head exam: PRESENT: atraumatic, normocephalic Eye exam: PRESENT: conjunctiva pink, EOMI, PERRLA. ABSENT: scleral icterus Ear exam: PRESENT: normal external ear exam Mouth exam: PRESENT: moist, tongue midline Neck exam: ABSENT: carotid bruit, JVD, lymphadenopathy, thyromegaly Respiratory exam: PRESENT: clear to auscultation danielle, crackles. ABSENT: rales, rhonchi, wheezes Cardiovascular exam: PRESENT: RRR. ABSENT: diastolic murmur, rubs, systolic murmur Pulses: PRESENT: normal dorsalis pedis pul Vascular exam: PRESENT: normal capillary refill GI/Abdominal exam: PRESENT: normal bowel sounds, soft. ABSENT: distended, guarding, mass, organolmegaly, rebound, tenderness Rectal exam: PRESENT: deferred Extremities exam: PRESENT: full ROM. ABSENT: calf tenderness, clubbing, pedal edema Neurological exam: PRESENT: alert, awake, oriented to person, oriented to place, oriented to time, oriented to situation, CN II-XII grossly intact. ABSENT: motor sensory deficit Psychiatric exam: PRESENT: appropriate affect, normal mood. ABSENT: homicidal ideation, suicidal ideation Skin exam: PRESENT: dry, intact, warm. ABSENT: cyanosis, rash Results Laboratory Results: 12/05/18 05:07 12/05/18 05:07 12/04/18 12/04/18 12/04/18 17:39 17:39 17:39 WBC 5.4 RBC 3.64 L Hgb 11.3 L Hct 34.1 L MCV 94 MCH 31.1 MCHC 33.2 RDW 13.8 Plt Count 236 Seg Neutrophils % 54.8 Lymphocytes % 23.0 Monocytes % 14.5 H Eosinophils % 6.7 H Basophils % 1.0 Absolute Neutrophils 3.0 Absolute Lymphocytes 1.2 Absolute Monocytes 0.8 Absolute Eosinophils 0.4 Absolute Basophils 0.1 Sodium 141.6 Potassium 4.4 Chloride 102 Carbon Dioxide 26 Anion Gap 14 BUN 91 H Creatinine 3.24 H Est GFR ( Amer) 17 L Est GFR (Non-Af Amer) 14 L Glucose 161 H Calcium 9.5 Magnesium Total Bilirubin 0.4 AST 29 Alkaline Phosphatase 65 Total Protein 6.5 Albumin 4.1 Triglycerides Cholesterol LDL Cholesterol Direct VLDL Cholesterol HDL Cholesterol TSH 4.04 Free T4 1.10 Free T3 pg/mL 2.76 L Urine Color Urine Appearance Urine pH Ur Specific [place] Urine Protein Urine Glucose (UA) Urine Ketones Urine Blood Urine Nitrite Ur Leukocyte Esterase Urine WBC (Auto) Urine RBC (Auto) 12/04/18 12/05/18 12/05/18 17:40 05:07 05:07 WBC 4.7 RBC 2.95 L Hgb 9.5 L Hct 27.6 L MCV 94 MCH 32.0 MCHC 34.2 RDW 13.8 Plt Count 183 Seg Neutrophils % Lymphocytes % Monocytes % Eosinophils % Basophils % Absolute Neutrophils Absolute Lymphocytes Absolute Monocytes Absolute Eosinophils Absolute Basophils Sodium 140.9 Potassium 4.3 Chloride 111 H Carbon Dioxide 23 Anion Gap 7 BUN 74 H Creatinine 2.60 H Est GFR ( Amer) 21 L Est GFR (Non-Af Amer) 18 L Glucose 95 Calcium 8.5 Magnesium 1.4 L Total Bilirubin AST Alkaline Phosphatase Total Protein Albumin Triglycerides 167 H Cholesterol 103.11 LDL Cholesterol Direct 54 VLDL Cholesterol 33.4 H HDL Cholesterol 29 L TSH Free T4 Free T3 pg/mL Urine Color YELLOW Urine Appearance SLIGHTLY-CLOUDY Urine pH 5.0 Ur Specific [place] 1.016 Urine Protein NEGATIVE Urine Glucose (UA) NEGATIVE Urine Ketones NEGATIVE Urine Blood NEGATIVE Urine Nitrite NEGATIVE Ur Leukocyte Esterase TRACE H Urine WBC (Auto) 8 Urine RBC (Auto) 3 12/04/18 12/04/18 12/05/18 17:39 19:04 05:07 Troponin I < 0.012 NT-Pro-B Natriuret Pep 611 H 614 H Assessment and Plan - Diagnosis (1) RUBÉN (acute kidney injury) Is this a current diagnosis for this admission?: Yes Plan: December 05, 2018-improved. Creatinine 2.6 this a.m. Repeat BMP in a.m. continue hydration. (2) Diabetes mellitus type 2 in obese Is this a current diagnosis for this admission?: Yes Plan: A hemoglobin A1c will be obtained to assess current therapy. Patient will be continued on her current medications and a diabetic diet with modifications only as needed for adjustment for acute renal failure. Before meals and at bedtime blood sugars will be obtained and hyperglycemia will be treated with sliding scale insulin and a hypoglycemic protocol will be in place. December 05, 2018-continue current therapy. Make adjustment based on patient needs. (3) Hypertension Qualifiers: Hypertension type: essential hypertension Qualified Code(s): I10 - Essential (primary) hypertension Is this a current diagnosis for this admission?: Yes Plan: Patient will be continued on her current antihypertensive regiment with modifications made appropriate for her acute renal insufficiency. Her blood pressure be monitored closely throughout her hospital course. December 05, 2018-continue to monitor may change plan of care as appropriate - Time Time Spent with patient: Less than 15 minutes - Inpatient Certification Based on my medical assessment, after consideration of the patient's comorbidities, presenting symptoms, or acuity I expect that the services needed warrant INPATIENT care.: Yes I certify that my determination is in accordance with my understanding of Medicare's requirements for reasonable and necessary INPATIENT services [42 CFR 412.3e].: Yes Medical Necessity: Other - IV hydration
[2018-12-05 16:31] LABS: ANION GAP 7 (5-19); BLOOD UREA NITROGEN 66 mg/dL (7-20); CALCIUM 8.7 mg/dL (8.4-10.2); CARBON DIOXIDE 24 mmol/L (22-30); CHLORIDE 107 mmol/L (98-107); GLUCOSE 126 mg/dL (75-110); POTASSIUM 4.5 mmol/L (3.6-5.0)
--- NOTE | 2018-12-05 18:22 | PDOC CONSULTATION ---
Consultation Consult Date: 12/05/18 Provider Consulted: ANNA SANDHU Consult reason:: I was asked to see the patient due to worsening kidney function. History of Present Illness Admission Date/PCP: 12/04/18 19:30 DALLAS DIGGS MD History of Present Illness: EVE PATRICIO is a 83 year old female known to me with history of chronic kidney disease stage IV, diabetes mellitus type 2, hypertension, COPD and microalbuminuria who I have sent to the hospital yesterday because of sudden wo rsening of her kidney function. Patient had done her knx-dohure-ie visit lab work and this revealed a BUN of 86 and a creatinine of 3.06. Patient's baseline kidney function during her last visit to see me last August include a BUN of 42, creatinine of 1.94 with a EGFR of 25. With my staff call the patient she stated that she was swollen and feeling tired so I sent her to the emergency room. Upon admission her repeat blood work showed a BUN of 91 with a creatinine of 3.24. The patient went to a 2-week vacation in [place] with relatives and states that she has been eating a high salt diet. On day 4 of her vacation she started having leg swelling. She got home on November 20 and immediately went to see her primary care provider, Dr. Diggs on November 22. She was given Lasix 40 mg daily and potassium chloride 10 mEq daily good for 10 days. Her hydrochlorothiazide was discontinued while on Lasix. The patient said her leg swelling has gone down to almost normal when she took the Lasix. However she started feeling tired and very sleepy. She said her breathing has not changed from her baseline shortness of breath from her COPD. She denies any chest pains. Patient has not taken the last 3 pills of her Lasix because of feeling tired. Upon admission patient was given IV fluid boluses of normal saline followed by LR. She has so far received a total of 3 L of IV fluids since admission. Her most recent kidney function include a BUN of 66 and creatinine of 2.33. Patient is feeling fine and does not really have any other complaints. She states that she is going to the bathroom frequently and has been having good urine output. She denies any nausea, vomiting nor diarrhea. She denies any NSAID use. Past Medical History Cardiac Medical History: Reports: Coronary Artery Disease, Hyperlipidemia, Hypertension-primary Pulmonary Medical History: Reports: Asthma, Bronchitis, Chronic Obstructive Pulmonary Disease (COPD) EENT Medical History: Reports: Ears - Hearing aids, Nose - Allergic rhinitis Endocrine Medical History: Reports: Diabetes Mellitus Type 2, Hypothyroidism, Obesity Renal/ Medical History: Reports: Chronic Kidney Disease Stage IV, Proteinuria, Secondary Hyperparathyroidism Malignancy Medical History: Reports: Breast Cancer - Status post chemotherapy and radiation GI Medical History: Reports: Gastroesophageal Reflux Disease, Other - Diverticulosis Musculoskeltal Medical History: Reports: Arthritis Psychiatric Medical History: Reports: Depression - d/t loss of son, Tobacco Dependency Hematology Medical History: Reports Anemia of Chronic Kidney Disease Past Surgical History Past Surgical History: Reports: Section - X2, Hysterectomy, Mastectomy - Left breast cancer: Left lumpectomy and lymph node dissection, Orthopedic Surgery - Toes of left foot Social History Information Source: Patient, [facility] Office Lives with: Friend Smoking Status: Former Smoker Frequency of Alcohol Use: None Hx Recreational Drug Use: No Drugs: None Hx Prescription Drug Abuse: No - Advance Directive Resuscitation Status: Full Code Family History Family History: CAD - Father, DM - Sister Parental Family History Reviewed: Yes Children Family History Reviewed: Yes Sibling(s) Family History Reviewed.: Yes Medication/Allergy Home Medications: Zolpidem Tartrate 5 mg PO QHS 11/15/12 Simvastatin 20 mg PO DAILY 09/29/13 Ascorbic Acid [Vitamin C 500 mg Tablet] 500 mg PO DAILY 02/20/14 Mometasone Furoate [Nasonex] 1 spray NAREB DAILY 02/23/14 Amlodipine Besylate [Norvasc 2.5 mg Tablet] 2.5 mg PO DAILY MDD *please see comments* 06/11/15 Tamoxifen Citrate 10 mg PO Q12 06/11/15 Cholecalciferol (Vitamin D3) [Vitamin D3 1000 Unit Tablet] 1,000 unit PO DAILY 12/04/18 Cyanocobalamin (Vitamin B-12) [Vitamin B-12 1000 Mcg Tablet] 1,000 mcg PO DAILY 12/04/18 Fluticasone Propionate [Flonase Nasal [place] 50 Mcg/[place] 16 gm] 1 spray NAREB DAILYP PRN 12/04/18 Furosemide [Lasix 40 mg Tablet] 40 mg PO DAILY 12/04/18 Glimepiride [Amaryl 1 mg Tablet] 1 mg PO DAILY 12/04/18 Ipratropium/Albuterol Sulfate [Duoneb 3 ml Ampul] 3 ml NEB [id number] PRN 12/04/18 Levothyroxine Sodium [Synthroid 0.025 mg Tablet] 0.025 mg PO Q6AM 12/04/18 Losartan/Hydrochlorothiazide [Losartan-Hctz 50-12.5 mg Tab] 1 each PO DAILY 12/04/18 Meloxicam [Mobic 15 mg Tablet] 15 mg PO DAILY 12/04/18 Nystatin [Nystop] 1 applic TOP BIDP PRN 12/04/18 Pantoprazole Sodium [Protonix [address] Tablet] 40 mg PO QAM 12/04/18 Potassium Chloride [Klor-Con 10 Meq Capsule ER] 10 meq PO DAILY 12/04/18 Tiotropium [place] [Spiriva Respimat] 2 inh IH DAILY 12/04/18 Allergies/Adverse Reactions: ceftriaxone sodium [From Rocephin] Allergy (Severe, Verified 12/04/18 16:39) neomycin [Neomycin] Allergy (Severe, Verified 12/04/18 16:39) nitrofurantoin [From Macrobid] Allergy (Severe, Verified 12/04/18 16:39) Sulfa (Sulfonamide Antibiotics) Allergy (Severe, Verified 12/04/18 16:39) Review of Systems All systems: reviewed and no additional remarkable complaints except as stated Review of Systems: Constitutional: ABSENT: chills, fatigue, fever(s), headache(s), weight gain, weight loss Eyes: ABSENT: visual disturbances Ears: ABSENT: hearing changes Cardiovascular: ABSENT: chest pain, orthropnea, palpitations; admits dyspnea on exertion and edema Respiratory: ABSENT: cough, hemoptysis Gastrointestinal: ABSENT: abdominal pain, constipation, diarrhea, hematemesis, hematochezia, nausea, vomiting Genitourinary: ABSENT: dysuria, hematuria Musculoskeletal: ABSENT: joint swelling Integumentary: ABSENT: rash, wounds Neurological: ABSENT: abnormal gait, abnormal speech, confusion, dizziness, focal weakness, numbness, syncope Psychiatric: ABSENT: anxiety, depression Endocrine: ABSENT: cold intolerance, heat intolerance, polydipsia, polyuria Hematologic/Lymphatic: ABSENT: easy bleeding, easy bruising, lymphadenopathy Physical Exam Vital Signs: Temp Pulse Resp BP Pulse Ox 97.7 F 69 15 130/46 H 98 12/05/18 16:13 12/05/18 16:13 12/05/18 16:13 12/05/18 16:13 12/05/18 16:13 Intake & Output 12/04/18 12/05/18 12/06/18 06:59 06:59 06:59 Intake Total 2440 2409 Output Total 900 Balance 2440 1509 Weight 69.4 kg Exam: General appearance: No acute distress, cooperative, well-developed, well- nourished Head exam: PRESENT: atraumatic, normocephalic Eye exam: PRESENT: Conjunctiva [place], EOMI, PERRLA. ABSENT: conjunctival injection, scleral icterus Mouth exam: PRESENT: moist, neck supple, tongue midline Neck exam: PRESENT: full ROM. ABSENT: carotid bruit, JVD, lymphadenopathy, thyromegaly Respiratory exam: PRESENT: clear to auscultation bilaterally. ABSENT: rales, rhonchi, stridor, wheezes Cardiovascular exam: PRESENT: RRR, +S1, +S2. ABSENT: systolic murmur Pulses: PRESENT: normal radial pulses, normal dorsalis pedis pulses GI/Abdominal exam: PRESENT: normal bowel sounds, soft. ABSENT: guarding, mass, tenderness Rectal exam: Deferred Extremities exam: PRESENT: full ROM. Mild bilateral lower extremity pitting edema ABSENT: calf tenderness Musculoskeletal: PRESENT: full ROM. ABSENT: deformity Neurological exam: PRESENT: alert, Awake, Oriented to person, Oriented to place, Oriented to time, reflexes normal, CN II-XII grossly intact. ABSENT: motor sensory deficit Psychiatric exam: PRESENT: appropriate affect, normal mood. ABSENT: homicidal ideation, suicidal ideation Skin exam: PRESENT: intact, dry, warm. ABSENT: rash Results Laboratory Results: 12/05/18 05:07 12/05/18 15:33 12/04/18 12/04/18 12/04/18 17:39 17:39 17:40 WBC RBC Hgb Hct MCV MCH MCHC RDW Plt Count Sodium 141.6 Potassium 4.4 Chloride 102 Carbon Dioxide 26 Anion Gap 14 BUN 91 H Creatinine 3.24 H Est GFR ( Amer) 17 L Est GFR (Non-Af Amer) 14 L Glucose 161 H Calcium 9.5 Magnesium Total Bilirubin 0.4 AST 29 Alkaline Phosphatase 65 Total Protein 6.5 Albumin 4.1 Triglycerides Cholesterol LDL Cholesterol Direct VLDL Cholesterol HDL Cholesterol TSH 4.04 Free T4 1.10 Free T3 pg/mL 2.76 L Urine Color YELLOW Urine Appearance SLIGHTLY-CLOUDY Urine pH 5.0 Ur Specific [place] 1.016 Urine Protein NEGATIVE Urine Glucose (UA) NEGATIVE Urine Ketones NEGATIVE Urine Blood NEGATIVE Urine Nitrite NEGATIVE Ur Leukocyte Esterase TRACE H Urine WBC (Auto) 8 Urine RBC (Auto) 3 12/05/18 12/05/18 12/05/18 05:07 05:07 15:33 WBC 4.7 RBC 2.95 L Hgb 9.5 L Hct 27.6 L MCV 94 MCH 32.0 MCHC 34.2 RDW 13.8 Plt Count 183 Sodium 140.9 137.7 Potassium 4.3 4.5 Chloride 111 H 107 Carbon Dioxide 23 24 Anion Gap 7 7 BUN 74 H 66 H Creatinine 2.60 H 2.33 H Est GFR ( Amer) 21 L 24 L Est GFR (Non-Af Amer) 18 L 20 L Glucose 95 126 H Calcium 8.5 8.7 Magnesium 1.4 L Total Bilirubin AST Alkaline Phosphatase Total Protein Albumin Triglycerides 167 H Cholesterol 103.11 LDL Cholesterol Direct 54 VLDL Cholesterol 33.4 H HDL Cholesterol 29 L TSH Free T4 Free T3 pg/mL Urine Color Urine Appearance Urine pH Ur Specific [place] Urine Protein Urine Glucose (UA) Urine Ketones Urine Blood Urine Nitrite Ur Leukocyte Esterase Urine WBC (Auto) Urine RBC (Auto) 12/04/18 12/04/18 12/05/18 17:39 19:04 05:07 Troponin I < 0.012 NT-Pro-B Natriuret Pep 611 H 614 H Assessment & Plan - Diagnosis (1) Acute kidney injury superimposed on chronic kidney disease Is this a current diagnosis for this admission?: Yes Plan: This is likely secondary to acute prerenal azotemia secondary to overdiuresis. Agree with discontinuation of Lasix. Agree with careful IV fluid hydration. Patient's kidney function has been continuously improving. I am hoping that by tomorrow she is going to be near her baseline kidney function and if she is then I think she can be safely discharged home tomorrow. She has follow-up visit scheduled with me next week. If she gets discharged tomorrow please have the patient do a repeat basic metabolic panel one day prior to her follow-up visit with me next week. She will not need to be on Lasix and potassium when she gets discharged. (2) Chronic kidney disease, stage IV (severe) Is this a current diagnosis for this admission?: Yes Plan: Secondary to hypertensive nephrosclerosis. (3) Hypertension Qualifiers: Hypertension type: essential hypertension Qualified Code(s): I10 - Essential (primary) hypertension Is this a current diagnosis for this admission?: Yes Plan: Well-controlled. (4) Anemia in chronic kidney disease Is this a current diagnosis for this admission?: Yes (5) COPD (chronic obstructive pulmonary disease) Qualifiers: COPD type: unspecified COPD Qualified Code(s): J44.9 - Chronic obstructive pulmonary disease, unspecified Is this a current diagnosis for this admission?: Yes (6) Diabetes mellitus type 2 in obese Is this a current diagnosis for this admission?: Yes - Notes Notes: Thank you very much for this consultation. - Time Time Spent: 50 to 70 Minutes
[2018-12-05] MEDS: ZOLPIDEM TARTRATE 5 MG TABLET PO SCH (21:08)
[2018-12-05] MEDS: SIMVASTATIN 10 MG TABLET PO SCH (21:08)
[2018-12-06] MEDS: IPRATROPIUM BROMIDE 0.02% NEB 0.5 MG/2.5 ML AMPUL NEB PRN ×2 (00:17→10:37)
[2018-12-06] MEDS: LEVALBUTEROL HCL NEB 1.25 MG/3 ML AMPUL NEB PRN ×2 (00:17→10:37)
[2018-12-06 04:51] LABS: HEMATOCRIT 28.4 % (36.0-47.0); HEMOGLOBIN 9.7 g/dL (12.0-15.5); MEAN CORPUSCULAR HEMOGLOBIN 31.9 pg (27.0-33.4); MEAN CORPUSCULAR VOLUME 94 fl (80-97); PLATELET COUNT 183 10^3/uL (150-450); RED BLOOD COUNT 3.03 10^6/uL (3.72-5.28); RED CELL DISTRIBUTION WIDTH 13.7 % (11.5-14.0)
[2018-12-06 05:14] LABS: ANION GAP 6 (5-19); BLOOD UREA NITROGEN 56 mg/dL (7-20); CALCIUM 8.9 mg/dL (8.4-10.2); CARBON DIOXIDE 24 mmol/L (22-30); CHLORIDE 110 mmol/L (98-107); GLUCOSE 112 mg/dL (75-110); POTASSIUM 4.6 mmol/L (3.6-5.0)
[2018-12-06] MEDS: HEPARIN SOD (PORCINE) 5,000 UNIT/ML 1 ML VIAL SUBCUT SCH (05:48)
[2018-12-06] MEDS: LEVOTHYROXINE SODIUM 0.025 MG TABLET PO SCH (06:20)
[2018-12-06] MEDS: PANTOPRAZOLE SODIUM 40 MG TABLET.DR PO SCH (07:33)
[2018-12-06] MEDS: LOSARTAN POTASSIUM 50 MG TABLET PO SCH (10:07)
[2018-12-06] MEDS: ASCORBIC ACID 500 MG TABLET PO SCH (10:07)
[2018-12-06] MEDS: CHOLECALCIFEROL (D3) 1,000 UNIT (25 MCG) TABLET PO SCH (10:07)
[2018-12-06] MEDS: GLIMEPIRIDE 1 MG TABLET PO SCH (10:07)
[2018-12-06] MEDS: TIOTROPIUM BROMIDE DPI 5 CAP/KIT (18 MCG/CAP) IH SCH (10:07)
[2018-12-06] MEDS: AMLODIPINE BESYLATE 2.5 MG TABLET PO SCH (10:07)
[2018-12-06] MEDS: TAMOXIFEN CITRATE 10 MG TABLET PO SCH (10:08)
[2018-12-06] MEDS: CYANOCOBALAMIN (VITAMIN B-12) 1,000 MCG TABLET PO SCH (10:08)
[2018-12-06] MEDS: DOCUSATE SODIUM 100 MG/10 ML UDC PO SCH (10:18)
--- NOTE | 2018-12-06 10:23 | PDOC PROGRESS REPORT ---
Subjective Progress Note for:: 12/06/18 Subjective:: Patient is doing well except that earlier this morning she has about 3 episodes of loose stools. She said she might have eaten something that did not agree with her. Otherwise she does not have any new complaints. Reason For Visit: ACUTE RENAL INSUFFICIENCY ON CHRONIC KIDNEY Physical Exam Vital Signs: Temp Pulse Resp BP Pulse Ox 98.4 F 76 16 109/42 L 95 12/06/18 03:03 12/06/18 07:00 12/06/18 03:03 12/06/18 03:03 12/06/18 03:03 Intake & Output 12/05/18 12/06/18 12/07/18 06:59 06:59 06:59 Intake Total 2440 2795 Output Total 2100 Balance 2440 695 Weight 69.4 kg 69.4 kg Exam: General appearance: PRESENT: no acute distress, cooperative, well-developed, well-nourished Head exam: PRESENT: atraumatic, normocephalic Eye exam: PRESENT: conjunctiva slightly pale, PERRLA. ABSENT: scleral icterus Neck exam: ABSENT: JVD Respiratory exam: PRESENT: Slightly diminished breath sounds. Few wheezing AB SENT: crackles, rales, rhonchi, unlabored, wheezes Cardiovascular exam: PRESENT: Regular rate rhythm -+S1, +S2. ABSENT: diastolic murmur, systolic murmur GI/Abdominal exam: PRESENT: normal bowel sounds, soft. ABSENT: guarding, mass, tenderness Extremities exam: Grade 1 bilateral lower extremity pitting edema Neurological exam: PRESENT: alert, awake, oriented to person, place and time. Skin exam: PRESENT: dry, warm, Results Laboratory Results: 12/06/18 04:16 12/06/18 04:16 12/05/18 12/06/18 12/06/18 15:33 04:16 04:16 WBC 6.0 RBC 3.03 L Hgb 9.7 L Hct 28.4 L MCV 94 MCH 31.9 MCHC 34.0 RDW 13.7 Plt Count 183 Sodium 137.7 140.1 Potassium 4.5 4.6 Chloride 107 110 H Carbon Dioxide 24 24 Anion Gap 7 6 BUN 66 H 56 H Creatinine 2.33 H 2.24 H Est GFR ( Amer) 24 L 25 L Est GFR (Non-Af Amer) 20 L 21 L Glucose 126 H 112 H Calcium 8.7 8.9 Magnesium 1.9 12/04/18 12/04/18 12/05/18 17:39 19:04 05:07 Troponin I < 0.012 NT-Pro-B Natriuret Pep 611 H 614 H Assessment & Plan - Diagnosis (1) Acute kidney injury superimposed on chronic kidney disease Is this a current diagnosis for this admission?: Yes Plan: Patient is nonoliguric. His most likely secondary to acute prerenal azotemia secondary to relative overdiuresis. Kidney function is now near baseline. Patient is clinically well. (2) Chronic kidney disease, stage IV (severe) Is this a current diagnosis for this admission?: Yes Plan: Secondary to diabetic nephropathy. (3) Hypertension Qualifiers: Hypertension type: essential hypertension Qualified Code(s): I10 - Essential (primary) hypertension Is this a current diagnosis for this admission?: Yes Plan: Well-controlled. (4) Anemia in chronic kidney disease Is this a current diagnosis for this admission?: Yes (5) COPD (chronic obstructive pulmonary disease) Qualifiers: COPD type: unspecified COPD Qualified Code(s): J44.9 - Chronic obstructive pulmonary disease, unspecified Is this a current diagnosis for this admission?: Yes Plan: Advised patient to continue inhalers even when she gets home. (6) Diabetes mellitus type 2 in obese Is this a current diagnosis for this admission?: Yes - Notes Notes: From nephrology standpoint I think patient can be discharged home as long as she no longer has diarrhea. Patient has appointment to see me next week so instructed the patient to repeat blood work including a CBC and a BMP today prior to her appointment. Discussed with Jayant Blakely NP. - Time Time with patient: 15-25 minutes
--- NOTE | 2018-12-06 10:29 | PDOC DISCHARGE SUMMARY ---
General - Admit/Disc Date/PCP Admission Date/Primary Care Provider: 12/04/18 19:30 DALLAS DIGGS MD Discharge Date: 12/06/18 - Discharge Diagnosis (1) RUBÉN (acute kidney injury) Is this a current diagnosis for this admission?: Yes (2) Diabetes mellitus type 2 in obese Is this a current diagnosis for this admission?: Yes (3) Hypertension Is this a current diagnosis for this admission?: Yes - Additional Information Resuscitation Status: Full Code Discharge Diet: As Tolerated Discharge Activity: Activity As Tolerated Home Medications: Zolpidem Tartrate 5 mg PO QHS 11/15/12 Simvastatin 20 mg PO DAILY 09/29/13 Ascorbic Acid [Vitamin C 500 mg Tablet] 500 mg PO DAILY 02/20/14 Mometasone Furoate [Nasonex] 1 spray NAREB DAILY 02/23/14 Amlodipine Besylate [Norvasc 2.5 mg Tablet] 2.5 mg PO DAILY MDD *please see comments* 06/11/15 Tamoxifen Citrate 10 mg PO Q12 06/11/15 Cholecalciferol (Vitamin D3) [Vitamin D3 1000 Unit Tablet] 1,000 unit PO DAILY 12/04/18 Cyanocobalamin (Vitamin B-12) [Vitamin B-12 1000 mcg Tablet] 1,000 mcg PO DAILY 12/04/18 Fluticasone Propionate [Flonase Nasal [place] 50 Mcg/[place] 16 gm] 1 spray NAREB DAILYP PRN 12/04/18 Glimepiride [Amaryl 1 mg Tablet] 1 mg PO DAILY 12/04/18 Ipratropium/Albuterol Sulfate [Duoneb 3 ml Ampul] 3 ml NEB RTQ6HP PRN 12/04/18 Levothyroxine Sodium [Synthroid 0.025 mg Tablet] 0.025 mg PO Q6AM 12/04/18 Losartan/Hydrochlorothiazide [Losartan-Hctz 50-12.5 mg Tab] 1 each PO DAILY 12/04/18 Meloxicam [Mobic 15 mg Tablet] 15 mg PO DAILY 12/04/18 Nystatin [Nystop] 1 applic TOP BIDP PRN 12/04/18 Pantoprazole Sodium [Protonix [address] Tablet] 40 mg PO QAM 12/04/18 Tiotropium [place] [Spiriva Respimat] 2 inh IH DAILY 12/04/18 Ipratropium [place] [Atrovent 0.02% Neb 0.5 mg/2.5 ml Ampul] 0.5 mg NEB RTQ6HP PRN vial.neb 12/06/18 History of Present Illness Patient complains of: Slight diarrhea History of Present Illness: EVE PATRICIO is a 83 year old female who was admitted for acute on chronic renal failure Hospital Course Hospital Course: Patient was admitted for acute on chronic renal failure. Patient was in [facility] visiting family for 2 weeks states she was eating a lot of salty foods. Patient returned home only to find increased swelling. Her primary care practitioner put on Lasix for this which call patient with acute on chronic renal failure. Patient was admitted to the hospital hydrated with saline and return to normal renal function. This time patient improved sufficiently return home follow-up with Dr. Young Sunday of next week. Patient will hold all diuretics at this time. Patient educated if her diarrhea can persist to report this to her primary care practitioner. Physical Exam Vital Signs: Temp Pulse Resp BP Pulse Ox 98.2 F 78 23 H 131/66 H 95 12/06/18 07:28 12/06/18 07:28 12/06/18 07:28 12/06/18 07:28 12/06/18 07:28 Intake & Output 12/05/18 12/06/18 12/07/18 06:59 06:59 06:59 Intake Total 2440 2795 Output Total 2100 Balance 2440 695 Weight 69.4 kg 69.4 kg General appearance: PRESENT: no acute distress, well-developed, well-nourished Head exam: PRESENT: atraumatic, normocephalic Eye exam: PRESENT: conjunctiva pink, EOMI, PERRLA. ABSENT: scleral icterus Ear exam: PRESENT: normal external ear exam Mouth exam: PRESENT: moist, tongue midline Neck exam: ABSENT: carotid bruit, JVD, lymphadenopathy, thyromegaly Respiratory exam: PRESENT: clear to auscultation danielle. ABSENT: rales, rhonchi, wheezes Cardiovascular exam: PRESENT: RRR. ABSENT: diastolic murmur, rubs, systolic murmur Pulses: PRESENT: normal dorsalis pedis pul Vascular exam: PRESENT: normal capillary refill GI/Abdominal exam: PRESENT: normal bowel sounds, soft. ABSENT: distended, guarding, mass, organolmegaly, rebound, tenderness Rectal exam: PRESENT: deferred Extremities exam: PRESENT: full ROM. ABSENT: calf tenderness, clubbing, pedal edema Neurological exam: PRESENT: alert, awake, oriented to person, oriented to place, oriented to time, oriented to situation, CN II-XII grossly intact. ABSENT: motor sensory deficit Psychiatric exam: PRESENT: appropriate affect, normal mood. ABSENT: homicidal ideation, suicidal ideation Skin exam: PRESENT: dry, intact, warm. ABSENT: cyanosis, rash Results Laboratory Results: 12/06/18 04:16 12/06/18 04:16 12/05/18 12/06/18 12/06/18 15:33 04:16 04:16 WBC 6.0 RBC 3.03 L Hgb 9.7 L Hct 28.4 L MCV 94 MCH 31.9 MCHC 34.0 RDW 13.7 Plt Count 183 Sodium 137.7 140.1 Potassium 4.5 4.6 Chloride 107 110 H Carbon Dioxide 24 24 Anion Gap 7 6 BUN 66 H 56 H Creatinine 2.33 H 2.24 H Est GFR ( Amer) 24 L 25 L Est GFR (Non-Af Amer) 20 L 21 L Glucose 126 H 112 H Calcium 8.7 8.9 Magnesium 1.9 12/04/18 12/04/18 12/05/18 17:39 19:04 05:07 Troponin I < 0.012 NT-Pro-B Natriuret Pep 611 H 614 H Qualifiers - * PATIENT BEING DISCHARGED WITH ANY OF THE FOLLOWING DIAGNOSIS: No Acute Heart Failure - Is this a Heart Failure Patient?: No Plan Time Spent: Greater than 30 Minutes
[2018-12-06 10:47] VITALS: BP 119/47
== END 2018-12-06 12:00 | disposition home or self-care (01) | DRG 684 ==
LOC: ER 16:35 → EH 19:30 → 4S 21:38
PROVIDERS: ADMIT Emergency Medicine; ATTEND Emergency Medicine
DX: N17.9 Acute kidney failure, unspecified (principal); I12.9 Hypertensive chronic kidney disease with stage 1 through stage 4 chronic kidney disease, or unspecified chronic kidney disease; E11.22 Type 2 diabetes mellitus with diabetic chronic kidney disease; N18.4 Chronic kidney disease, stage 4 (severe); I25.10 Atherosclerotic heart disease of native coronary artery without angina pectoris; J44.9 Chronic obstructive pulmonary disease, unspecified; M19.90 Unspecified osteoarthritis, unspecified site; E78.5 Hyperlipidemia, unspecified; E03.9 Hypothyroidism, unspecified; E66.9 Obesity, unspecified; T50.1X5A Adverse effect of loop [high-ceiling] diuretics, initial encounter; K21.9 Gastro-esophageal reflux disease without esophagitis; D63.1 Anemia in chronic kidney disease; Z85.3 Personal history of malignant neoplasm of breast; Z88.2 Allergy status to sulfonamides; Z87.891 Personal history of nicotine dependence; Z92.3 Personal history of irradiation; Z92.21 Personal history of antineoplastic chemotherapy; Z90.12 Acquired absence of left breast and nipple; Z82.49 Family history of ischemic heart disease and other diseases of the circulatory system; Z83.3 Family history of diabetes mellitus; Z79.899 Other long term (current) drug therapy; Z88.1 Allergy status to other antibiotic agents
CPT/HCPCS: 36415; 80048; 80061; 81001; 82043; 82570; 82962; 83036; 83735; 83880; 84100; 84439; 84443; 84481; 84484; 85025; 85027; 87070; 99284; J1644; J3475; J3490; J7030; J7120

== ENCOUNTER → 2018-12-04 | Outpatient (CLI) | payer MEDICARE, MEDICAID ==
[2018-12-04 10:53] LABS: ABSOLUTE EOSINOPHILS # (AUTO) 0.3 10^3/uL (0.0-0.6); ABSOLUTE MONOCYTES (AUTO) 0.6 10^3/uL (0.1-1.4); ABSOLUTE NEUT (AUTO) 4.1 10^3/uL (1.7-8.2); BASOPHILS % (AUTO) 0.6 % (0-2); EOSINOPHILS % (AUTO) 4.9 % (0-6); HEMATOCRIT 33.2 % (36.0-47.0); HEMOGLOBIN 11.2 g/dL (12.0-15.5); MEAN CORPUSCULAR HEMOGLOBIN 31.6 pg (27.0-33.4); MEAN CORPUSCULAR HGB CONC 33.8 g/dL (32.0-36.0); MEAN CORPUSCULAR VOLUME 93 fl (80-97); MONOCYTES % (AUTO) 9.7 % (3-13); PLATELET COUNT 212 10^3/uL (150-450); RED BLOOD COUNT 3.56 10^6/uL (3.72-5.28); RED CELL DISTRIBUTION WIDTH 13.6 % (11.5-14.0); SEGMENTED NEUTROPHILS % (AUTO) 67.8 % (42-78); TOTAL CELLS COUNTED % (AUTO) 100 %
[2018-12-04 11:17] LABS: ANION GAP 12 (5-19); BLOOD UREA NITROGEN 86 mg/dL (7-20); CALCIUM 9.5 mg/dL (8.4-10.2); CARBON DIOXIDE 24 mmol/L (22-30); CHLORIDE 100 mmol/L (98-107); GLUCOSE 181 mg/dL (75-110); PHOSPHORUS 3.9 mg/dL (2.5-4.5); POTASSIUM 4.5 mmol/L (3.6-5.0)
[2018-12-05 12:37] LABS: CREATININE URINE 115.6 mg/dL (Not Estab.)
== END ==
LOC: OD 09:45
PROVIDERS: ATTEND Internal Medicine Nephrology
DX: I12.9 Hypertensive chronic kidney disease with stage 1 through stage 4 chronic kidney disease, or unspecified chronic kidney disease (principal); N18.4 Chronic kidney disease, stage 4 (severe); E11.22 Type 2 diabetes mellitus with diabetic chronic kidney disease; E78.5 Hyperlipidemia, unspecified; N25.81 Secondary hyperparathyroidism of renal origin
CPT/HCPCS: 36415; 80048; 82043; 82570; 84100; 85025

== ENCOUNTER → 2018-12-10 | Outpatient (CLI) | payer MEDICARE, MEDICAID ==
[2018-12-10 10:12] LABS: MEAN CORPUSCULAR HEMOGLOBIN 31.5 pg (27.0-33.4); MEAN CORPUSCULAR HGB CONC 33.4 g/dL (32.0-36.0); MEAN CORPUSCULAR VOLUME 94 fl (80-97); PLATELET COUNT 224 10^3/uL (150-450); RED CELL DISTRIBUTION WIDTH 13.5 % (11.5-14.0); WHITE BLOOD COUNT 5.1 10^3/uL (4.0-10.5)
[2018-12-10 10:40] LABS: ANION GAP 10 (5-19); BLOOD UREA NITROGEN 44 mg/dL (7-20); CALCIUM 9.4 mg/dL (8.4-10.2); CARBON DIOXIDE 24 mmol/L (22-30); CHLORIDE 105 mmol/L (98-107); GLUCOSE 116 mg/dL (75-110); POTASSIUM 4.4 mmol/L (3.6-5.0)
== END ==
LOC: OD 09:29
PROVIDERS: ATTEND Internal Medicine Nephrology
DX: N17.9 Acute kidney failure, unspecified (principal); N18.4 Chronic kidney disease, stage 4 (severe); D63.1 Anemia in chronic kidney disease
CPT/HCPCS: 36415; 80048; 85027

== ENCOUNTER 2019-01-11 14:52 | Observation (INO) | payer MEDICARE, MEDICAID ==
--- NOTE | 2019-01-11 15:39 | ER Document Report ---
ED Medical Screen (RME) - General Chief Complaint: Low Blood Sugar Stated Complaint: BLOOD SUGAR PROBLEMS Time Seen by Provider: 01/11/19 15:27 Primary Care Provider: ANNA SANDHU MD [Primary Care Provider] - Follow up as needed Notes: Patient is 83-year-old female with history of COPD, stage IV kidney disease, anemia and hypertension who presents to the emergency department with a chief complaint of low blood sugar. Patient states that on 07 January she was seen by her primary care physician who placed her on prednisone and Levaquin. She states they put her on this since she was having a COPD exacerbation. Patient reports she inhaled mothball fumes which seemed to exacerbate cough. Patient states she did take 3 doses of the Levaquin but stopped 2 days ago. Patient is concerned because since yesterday she has had issues with low blood sugar. Patient states she has had a decreased appetite but does eat frequently due to her low sugar. Patient reports at [facility] this morning her blood sugar was in the 30s. Patient does take glimepiride 1 mg p.o. daily. Patient reports her last dose of this was at 8 AM this morning. Patient currently denying any respiratory distress. TRAVEL OUTSIDE OF THE [place] IN LAST 30 DAYS: No - Related Data Allergies/Adverse Reactions: ceftriaxone sodium [From Rocephin] Allergy (Severe, Verified 01/11/19 14:57) neomycin [Neomycin] Allergy (Severe, Verified 01/11/19 14:57) nitrofurantoin [From Macrobid] Allergy (Severe, Verified 01/11/19 14:57) Sulfa (Sulfonamide Antibiotics) Allergy (Severe, Verified 01/11/19 14:57) Past Medical History - Past Medical History Cardiac Medical History: Reports: Hx Coronary Artery Disease, Hx Hypercholesterolemia, Hx Hypertension Denies: Hx Heart Attack Pulmonary Medical History: Reports: Hx Asthma, Hx Bronchitis, Hx COPD Denies: Hx Pneumonia Neurological Medical History: Denies: Hx Cerebrovascular Accident, Hx Seizures Endocrine Medical History: Reports: Hx Diabetes Mellitus Type 2, Hx H ypothyroidism. Denies: Hx Diabetes Mellitus Type 1, Hx Hyperthyroidism Renal/ Medical History: Reports: Hx End Stage Renal Disease - stg 4. Denies: Hx Peritoneal Dialysis Malignancy Medical History: Reports: Hx Breast Cancer - Status post chemotherapy and radiation GI Medical History: Reports: Hx Gastroesophageal Reflux Disease. Denies: Hx Cirrhosis, Hx Crohn's Disease, Hx Hepatitis, Hx Ulcerative Colitis Musculoskeltal Medical History: Reports Hx Arthritis, Denies Hx Fibromyalgia, Denies Hx Gout Skin Medical History: Denies Hx Eczema, Denies Hx Psoriasis Psychiatric Medical History: Reports: Hx Depression - d/t loss of son Infectious Medical History: Denies: Hx Hepatitis Past Surgical History: Reports: Hx Section - X2, Hx Hysterectomy, Hx Mastectomy - Left breast cancer: Left lumpectomy and lymph node dissection, Hx Orthopedic Surgery - Toes of left foot - Immunizations Hx Diphtheria, Pertussis, Tetanus Vaccination: Yes Physical Exam - Vital signs Vitals: Temp Pulse BP Pulse Ox 98.7 F 78 107/81 95 01/11/19 15:02 01/11/19 15:02 01/11/19 15:02 01/11/19 15:02 - Respiratory Respiratory status: No respiratory distress Chest status: Nontender Breath sounds: Normal Chest palpation: Normal Course - Re-evaluation Re-evalutation: 01/11/19 15:37 We will obtain an Accu-Chek in triage. Patient is alert and oriented x3 no acute distress. My concern is that the mixture of her glimepiride and Levaquin has caused hypoglycemia. Patient reports she has not taken the Levaquin in 2 days. Patient continues to take the steroids. I have greeted and performed a rapid initial assessment of this patient. A comprehensive ED assessment and evaluation of the patient, analysis of test results and completion of the medical decision making process will be conducted by additional ED providers. - Vital Signs Vital signs: Temp Pulse Resp BP Pulse Ox 98.7 F 78 107/81 95 01/11/19 15:02 01/11/19 15:02 01/11/19 15:02 01/11/19 15:02 Doctor's Discharge - Discharge Referrals: ANNA SANDHU MD [Primary Care Provider] - Follow up as needed
[2019-01-11 16:35] LABS: ABSOLUTE EOSINOPHILS # (AUTO) 0.1 10^3/uL (0.0-0.6); ABSOLUTE LYMPHOCYTES (AUTO) 0.8 10^3/uL (0.5-4.7); ABSOLUTE MONOCYTES (AUTO) 0.8 10^3/uL (0.1-1.4); ABSOLUTE NEUT (AUTO) 6.1 10^3/uL (1.7-8.2); BASOPHILS % (AUTO) 0.5 % (0-2); EOSINOPHILS % (AUTO) 1.4 % (0-6); HEMATOCRIT 34.3 % (36.0-47.0); HEMOGLOBIN 11.4 g/dL (12.0-15.5); LYMPHOCYTES % (AUTO) 10.4 % (13-45); MEAN CORPUSCULAR HEMOGLOBIN 31.3 pg (27.0-33.4); MEAN CORPUSCULAR HGB CONC 33.4 g/dL (32.0-36.0); MEAN CORPUSCULAR VOLUME 94 fl (80-97); MONOCYTES % (AUTO) 10.1 % (3-13); PLATELET COUNT 234 10^3/uL (150-450); RED BLOOD COUNT 3.65 10^6/uL (3.72-5.28); RED CELL DISTRIBUTION WIDTH 14.4 % (11.5-14.0); SEGMENTED NEUTROPHILS % (AUTO) 77.6 % (42-78); TOTAL CELLS COUNTED % (AUTO) 100 %; WHITE BLOOD COUNT 7.9 10^3/uL (4.0-10.5)
[2019-01-11 16:37] LABS: APPEARANCE,URINE CLEAR; BILIRUBIN,URINE NEGATIVE (NEGATIVE); COLOR,URINE STRAW; GLUCOSE, URINE NEGATIVE (NEGATIVE); KETONES,URINE NEGATIVE (NEGATIVE); LEUKOCYTE ESTERASE,URINE NEGATIVE (NEGATIVE); NITRITE,URINE NEGATIVE (NEGATIVE); PROTEIN,URINE NEGATIVE (NEGATIVE); URINE SPECIFIC GRAVITY 1.009; UROBILINOGEN,URINE NEGATIVE mg/dL (<2.0)
[2019-01-11 16:54] LABS: ALBUMIN 2.8 g/dL (3.5-5.0); ALKALINE PHOSPHATASE 40 U/L (38-126); ANION GAP 9 (5-19); ASPARTATE AMINO TRANSFERASE 21 U/L (14-36); BILIRUBIN,DIRECT 0.1 mg/dL (0.0-0.4); BILIRUBIN,TOTAL 0.2 mg/dL (0.2-1.3); BLOOD UREA NITROGEN 40 mg/dL (7-20); CALCIUM 7.3 mg/dL (8.4-10.2); CARBON DIOXIDE 19 mmol/L (22-30); CHLORIDE 112 mmol/L (98-107); GLUCOSE 91 mg/dL (75-110); POTASSIUM 3.6 mmol/L (3.6-5.0); TOTAL PROTEIN 5.1 g/dL (6.3-8.2)
--- NOTE | 2019-01-11 20:11 | ER Document Report ---
ED Blood Sugar Problem - General Chief Complaint: Low Blood Sugar Stated Complaint: BLOOD SUGAR PROBLEMS Time Seen by Provider: 01/11/19 15:27 Mode of Arrival: Ambulatory Information source: Patient Notes: Chief complaint: Hypoglycemia History of complain:( obtained from----patient) 83 years old female with a history of diabetes, taking 1 mg of glyburide daily, presents with 24-hour history of low blood sugar. She says at times sugar dropped to 31. Early this morning she was having sweating and numbness and tingling sensation woke up and drank some honey and felt better. She not sugar whether she took more than 1 tablet. Denies any fever chills or other constitutional symptoms. Onset: Gradual Duration: Continuous Severity: Mild to moderate Quality: Not applicable Context: Hypoglycemia Exacerbating factor and relieving factors: As above REVIEW OF SYSTEMS: CONSTITUTIONAL : Denies fever, chills, or sweats. Denies recent illness. EENT: Denies eye, ear, throat, or mouth pain or symptoms. Denies nasal or sinus congestion or discharge. Denies throat, tongue, or mouth swelling or difficulty swallowing. CARDIOVASCULAR: Denies chest pain. Denies palpitations or racing or irregular heart beat. Denies ankle edema. RESPIRATORY: Denies cough, cold, or chest congestion. Denies shortness of breath, difficulty breathing, or wheezing. GASTROINTESTINAL: Denies distention. Denies nausea, vomiting, or diarrhea. Denies blood in vomitus, stools, or per rectum. Denies black, tarry stools. Denies constipation. GENITOURINARY: Denies difficulty urinating, painful urination, burning, frequency, blood in urine, or discharge. FEMALE GENITOURINARY: Denies vaginal bleeding, heavy or abnormal periods, irregular periods. Denies vaginal discharge or odor. MUSCULOSKELETAL: Denies back or neck pain or stiffness. Denies joint pain or swelling. SKIN: Denies rash, lesions or sores. HEMATOLOGIC : Denies easy bruising or bleeding. LYMPHATIC: Denies swollen, enlarged glands. NEUROLOGICAL: Denies confusion or altered mental status. Denies passing out or loss of consciousness. Denies dizziness or lightheadedness. Denies headache. Denies weakness or paralysis or loss of use of either side. Denies problems with gait or speech. Denies sensory loss, numbness, or tingling. Denies seizures. PSYCHIATRIC: Denies anxiety or stress. Denies depression, suicidal ideation, or homicidal ideation. ALL OTHER SYSTEMS REVIEWED AND NEGATIVE. PHYSICAL EXAMINATION: GENERAL: Well-appearing, well-nourished and in no acute distress. HEAD: Atraumatic, normocephalic. EYES: Pupils equal round and reactive to light, extraocular movements intact, conjunctiva are normal. ENT: Nares patent, oropharynx clear without exudates. Moist mucous membranes. NECK: Normal range of motion, supple without lymphadenopathy LUNGS: Breath sounds clear to auscultation bilaterally and equal. No wheezes rales or rhonchi. HEART: Regular rate and rhythm without murmurs ABDOMEN: Soft, nontender, nondistended abdomen. No guarding, no rebound. No masses appreciated. Examination of genitals-deferred Musculoskeletal: Normal range of motion, no pitting or edema. No cyanosis. NEUROLOGICAL: Cranial nerves grossly intact. Normal speech, normal gait. Normal sensory, motor exams PSYCH: Normal mood, normal affect. SKIN: Warm, Dry, normal turgor, no rashes or lesions noted. Dictation was performed using [employer] voice recognition software TRAVEL OUTSIDE OF THE [place] IN LAST 30 DAYS: No - HPI Notes: Dictated - Related Data Allergies/Adverse Reactions: ceftriaxone sodium [From Rocephin] Allergy (Severe, Verified 01/11/19 14:57) neomycin [Neomycin] Allergy (Severe, Verified 01/11/19 14:57) nitrofurantoin [From Macrobid] Allergy (Severe, Verified 01/11/19 14:57) Sulfa (Sulfonamide Antibiotics) Allergy (Severe, Verified 01/11/19 14:57) Past Medical History - Social History Smoking Status: Former Smoker Frequency of alcohol use: Rare Drug Abuse: None Lives with: Family Family History: CAD, DM, Hypertension, Malignancy Patient has suicidal ideation: No Patient has homicidal ideation: No - Past Medical History Cardiac Medical History: Reports: Hx Coronary Artery Disease, Hx Hyperch olesterolemia, Hx Hypertension Denies: Hx Heart Attack Pulmonary Medical History: Reports: Hx Asthma, Hx Bronchitis, Hx COPD Denies: Hx Pneumonia Neurological Medical History: Denies: Hx Cerebrovascular Accident, Hx Seizures Endocrine Medical History: Reports: Hx Diabetes Mellitus Type 2, Hx Hypothyroidism. Denies: Hx Diabetes Mellitus Type 1, Hx Hyperthyroidism Renal/ Medical History: Reports: Hx End Stage Renal Disease - stg 4. Denies: Hx Peritoneal Dialysis Malignancy Medical History: Reports: Hx Breast Cancer - Status post chemotherapy and radiation GI Medical History: Reports: Hx Gastroesophageal Reflux Disease. Denies: Hx Cirrhosis, Hx Crohn's Disease, Hx Hepatitis, Hx Ulcerative Colitis Musculoskeletal Medical History: Reports Hx Arthritis, Denies Hx Fibromyalgia, Denies Hx Gout Skin Medical History: Denies Hx Eczema, Denies Hx Psoriasis Psychiatric Medical History: Reports: Hx Depression - d/t loss of son Infectious Medical History: Denies: Hx Hepatitis Past Surgical History: Reports: Hx Section - X2, Hx Hysterectomy, Hx Mastectomy - Left breast cancer: Left lumpectomy and lymph node dissection, Hx Orthopedic Surgery - Toes of left foot - Immunizations Hx Diphtheria, Pertussis, Tetanus Vaccination: Yes Hx Pneumococcal Vaccination: 02/29/12 Review of Systems - Review of Systems Notes: Dictated Physical Exam - Vital signs Vitals: Temp Pulse BP Pulse Ox 98.7 F 78 107/81 95 01/11/19 15:02 01/11/19 15:02 01/11/19 15:02 01/11/19 15:02 - Notes Notes: Dictated Course - Re-evaluation Re-evalutation: 01/11/19 20:12 She has been monitored 01/11/19 21:58 Patient requested to be in the hospital overnight to monitor the blood sugar. Her case was discussed with hospitalist on-call Dr. Osorio. In Dr. Green opinion patient does not need to be admitted for observation. As long as the blood sugar remains over 100. - Vital Signs Vital signs: Temp Pulse Resp BP Pulse Ox 98.7 F 78 17 128/60 H 98 01/11/19 15:02 01/11/19 15:02 01/11/19 22:01 01/11/19 22:01 01/11/19 22:01 - Laboratory Result Diagrams: 01/11/19 16:06 01/11/19 16:06 Laboratory results interpreted by me: 01/11/19 01/11/19 01/11/19 16:06 16:06 16:06 RBC 3.65 L Hgb 11.4 L Hct 34.3 L RDW 14.4 H Lymph % (Auto) 10.4 L Chloride 112 H Carbon Dioxide 19 L BUN 40 H Creatinine 1.84 H Est GFR ( Amer) 32 L Est GFR (MDRD) Non-Af 26 L POC Glucose Calcium 7.3 L Magnesium 1.2 L* Total Protein 5.1 L Albumin 2.8 L TSH 01/11/19 01/11/19 16:06 20:47 RBC Hgb Hct RDW Lymph % (Auto) Chloride Carbon Dioxide BUN Creatinine Est GFR ( Amer) Est GFR (MDRD) Non-Af POC Glucose 64 L Calcium Magnesium Total Protein Albumin TSH 6.88 H Discharge - Discharge Clinical Impression: Hypoglycemia associated with type 2 diabetes mellitus, Hypomagnesemia Condition: Fair Disposition: ADMITTED INPATIENT Admitting Provider: Peter (Hospitalist) Unit Admitted: Telemetry
[2019-01-11] MEDS ORDERED: MAGNESIUM HYDROXIDE SUSP 30 ML UDCUP PO PRN (21:15)
[2019-01-11] MEDS ORDERED: ACETAMINOPHEN 325 MG TABLET PO PRN (21:15)
[2019-01-11] MEDS ORDERED: MAG HYDROX/AL HYDROX/SIMETH SUSP 30 ML UDCUP PO PRN (21:15)
[2019-01-11] MEDS ORDERED: GLUCAGON,HUMAN RECOMB 1 MG INJ IM PRN (21:15)
[2019-01-11] MEDS ORDERED: DEXTROSE 40% GEL 15 GM TUBE PO PRN ×2 (21:15)
[2019-01-11] MEDS ORDERED: DEXTROSE 50%-WATER 25 GM/50 ML DISP.SYRIN IV PRN ×2 (21:15)
[2019-01-11] MEDS ORDERED: IPRATROPIUM/ALBUTEROL 0.5-2.5 MG/3 ML AMPUL NEB PRN (23:02)
[2019-01-11] MEDS: MAGNESIUM SULFATE/D5W 1 GM/100 ML RTUPB IV SCH (23:10)
[2019-01-11] MEDS: IPRATROPIUM/ALBUTEROL 0.5-2.5 MG/3 ML AMPUL NEB PRN (23:24)
[2019-01-12] MEDS: MAGNESIUM SULFATE/D5W 1 GM/100 ML RTUPB IV SCH ×3 (00:17→01:14)
[2019-01-12] MEDS: HEPARIN SOD (PORCINE) 5,000 UNIT/ML 1 ML VIAL SUBCUT SCH ×4 (01:12→21:15)
[2019-01-12] MEDS: POTASSI CL 20 MEQ/D5-1/2NS 1L 1,000 ML IV PRN ×2 (01:26→08:59)
--- NOTE | 2019-01-12 05:48 | PDOC H&P ---
History of Present Illness Admission Date/PCP: 01/11/19 21:28 ANNA SANDHU MD Patient complains of: Hypoglycemia History of Present Illness: EVE PATRICIO is a 83 year old female with a past medical history of hypertension, CKD 4, diabetes, coronary artery disease and COPD with chronic bronchitis. She presents with hypoglycemia of 31 at home in the emergency room is found in the 60s. She denies recent change in diet or medication regiment. She otherwise complains of chronic wheeze. She is referred to the hospitalist for admission. Past Medical History Cardiac Medical History: Reports: Coronary Artery Disease, Hyperlipidema, Hypertension Denies: Myocardial Infarction Pulmonary Medical History: Reports: Asthma, Bronchitis, Chronic Obstructive Pulmonary Disease (COPD) Denies: Pneumonia Neurological Medical History: Denies: Seizures Endocrine Medical History: Reports: Diabetes Mellitus Type 2, Hypothyroidism Denies: Diabetes Mellitus Type 1, Hyperthyroidism Renal/ Medical History: Reports: End Stage Renal Disease - stg 4 Malignancy Medical History: Reports: Breast Cancer - Status post chemotherapy and radiation GI Medical History: Reports: Gastroesophageal Reflux Disease Denies: Cirrhosis, Crohn's Disease, Hepatitis, Ulcerative Colitis Musculoskeltal Medical History: Reports: Arthritis Denies: Fibromyalgia, Gout Skin Medical History: Denies: Eczema, Psoriasis Psychiatric Medical History: Reports: Depression Hematology: Reports: Anemia - Chronic kidney disease Denies: Bleeding Tendencies Past Surgical History Past Surgical History: Reports: Section - X2, Hysterectomy, Mastectomy - Left breast cancer: Left lumpectomy and lymph node dissection, Orthopedic Surgery - Toes of left foot Social History Information Source: Patient, [facility] Records Lives with: Family Smoking Status: Former Smoker Last Time Smoked: quit over 25 years ago, per patient Frequency of Alcohol Use: None Hx Recreational Drug Use: No Drugs: None Hx Prescription Drug Abuse: No - Advance Directive Resuscitation Status: Full Code Family History Family History: CAD, DM, Hypertension, Malignancy Parental Family History Reviewed: Yes Children Family History Reviewed: Yes Sibling(s) Family History Reviewed.: Yes Medication/Allergy Home Medications: Zolpidem Tartrate 5 mg PO QHS 11/15/12 Simvastatin 20 mg PO QHS 09/29/13 Tamoxifen Citrate 10 mg PO Q12 06/11/15 Cholecalciferol (Vitamin D3) [Vitamin D3 1000 Unit Tablet] 1,000 unit PO DAILY 12/04/18 Cyanocobalamin (Vitamin B-12) [Vitamin B-12 1000 mcg Tablet] 500 mcg PO QHS 12/04/18 Fluticasone Propionate [Flonase Nasal [place] 50 Mcg/[place] 16 gm] 1 spray NAREB ASDIR PRN 12/04/18 Glimepiride [Amaryl 1 mg Tablet] 1 mg PO DAILY 12/04/18 Ipratropium/Albuterol Sulfate [Duoneb 3 ml Ampul] 3 ml NEB QID 12/04/18 Levothyroxine Sodium [Synthroid 0.025 mg Tablet] 0.025 mg PO Q6AM 12/04/18 Meloxicam [Mobic 15 mg Tablet] 15 mg PO DAILY 12/04/18 Nystatin [Nystop] 1 applic TOP BIDP PRN 12/04/18 Pantoprazole Sodium [Protonix [address] Tablet] 40 mg PO QAM 12/04/18 Tiotropium [place] [Spiriva Respimat] 2 inh IH DAILY 12/04/18 Hydrochlorothiazide 12.5 mg PO DAILY 01/12/19 Losartan Potassium 50 mg PO DAILY 01/12/19 Tiotropium [place] [Spiriva Respimat] 2 inh IH QHS 01/12/19 Allergies/Adverse Reactions: ceftriaxone sodium [From Rocephin] Allergy (Severe, Verified 01/11/19 14:57) neomycin [Neomycin] Allergy (Severe, Verified 01/11/19 14:57) nitrofurantoin [From Macrobid] Allergy (Severe, Verified 01/11/19 14:57) Sulfa (Sulfonamide Antibiotics) Allergy (Severe, Verified 01/11/19 14:57) Review of Systems Constitutional: PRESENT: as per HPI. ABSENT: chills, fever(s), headache(s), weight gain, weight loss Eyes: ABSENT: visual disturbances Ears: ABSENT: hearing changes Cardiovascular: ABSENT: chest pain, dyspnea on exertion, edema, orthropnea, palpitations Respiratory: ABSENT: cough, hemoptysis Gastrointestinal: ABSENT: abdominal pain, constipation, diarrhea, hematemesis, hematochezia, nausea, vomiting Genitourinary: ABSENT: dysuria, hematuria Musculoskeletal: ABSENT: joint swelling Integumentary: ABSENT: rash, wounds Neurological: ABSENT: abnormal gait, abnormal speech, confusion, dizziness, focal weakness, syncope Psychiatric: ABSENT: anxiety, depression, homidical ideation, suicidal ideation Endocrine: ABSENT: cold intolerance, heat intolerance, polydipsia, polyuria Hematologic/Lymphatic: ABSENT: easy bleeding, easy bruising Physical Exam Vital Signs: Temp Pulse Resp BP Pulse Ox 97.3 F 75 16 113/54 L 98 01/12/19 00:48 01/12/19 02:00 01/12/19 00:48 01/12/19 00:48 01/12/19 00:48 Intake & Output 01/10/19 01/11/19 01/12/19 11:59 11:59 11:59 Intake Total 100 Balance 100 Weight 68.4 kg General appearance: PRESENT: no acute distress, well-developed, well-nourished Head exam: PRESENT: atraumatic, normocephalic Eye exam: PRESENT: conjunctiva pink, EOMI, PERRLA. ABSENT: scleral icterus Ear exam: PRESENT: normal external ear exam Mouth exam: PRESENT: moist, tongue midline Neck exam: ABSENT: carotid bruit, JVD, lymphadenopathy, thyromegaly Respiratory exam: PRESENT: crackles, prolonged expiratory phas, wheezes. ABSENT: accessory muscle use, rales, rhonchi Cardiovascular exam: PRESENT: RRR. ABSENT: diastolic murmur, rubs, systolic murmur Pulses: PRESENT: normal dorsalis pedis pul Vascular exam: PRESENT: normal capillary refill GI/Abdominal exam: PRESENT: normal bowel sounds, soft. ABSENT: distended, guarding, mass, organolmegaly, rebound, tenderness Rectal exam: PRESENT: deferred Extremities exam: PRESENT: full ROM. ABSENT: calf tenderness, clubbing, pedal edema Neurological exam: PRESENT: alert, awake, oriented to person, oriented to place, oriented to time, oriented to situation, CN II-XII grossly intact. ABSENT: motor sensory deficit Psychiatric exam: PRESENT: appropriate affect, normal mood. ABSENT: homicidal ideation, suicidal ideation Skin exam: PRESENT: dry, intact, warm. ABSENT: cyanosis, rash Results Laboratory Results: 01/11/19 16:06 01/11/19 16:06 01/11/19 01/11/19 01/11/19 16:06 16:06 16:06 WBC 7.9 RBC 3.65 L Hgb 11.4 L Hct 34.3 L MCV 94 MCH 31.3 MCHC 33.4 RDW 14.4 H Plt Count 234 Seg Neutrophils % 77.6 Sodium 139.5 Potassium 3.6 Chloride 112 H Carbon Dioxide 19 L Anion Gap 9 BUN 40 H Creatinine 1.84 H Est GFR ( Amer) 32 L Glucose 91 Calcium 7.3 L Magnesium Total Bilirubin 0.2 AST 21 Alkaline Phosphatase 40 Total Protein 5.1 L Albumin 2.8 L TSH Urine Color STRAW Urine Appearance CLEAR Urine pH 5.0 Ur Specific [place] 1.009 Urine Protein NEGATIVE Urine Glucose (UA) NEGATIVE Urine Ketones NEGATIVE Urine Blood NEGATIVE Urine Nitrite NEGATIVE Ur Leukocyte Esterase NEGATIVE Urine WBC (Auto) 2 Urine RBC (Auto) 1 01/11/19 01/11/19 16:06 16:06 WBC RBC Hgb Hct MCV MCH MCHC RDW Plt Count Seg Neutrophils % Sodium Potassium Chloride Carbon Dioxide Anion Gap BUN Creatinine Est GFR ( Amer) Glucose Calcium Magnesium 1.2 L* Total Bilirubin AST Alkaline Phosphatase Total Protein Albumin TSH 6.88 H Urine Color Urine Appearance Urine pH Ur Specific [place] Urine Protein Urine Glucose (UA) Urine Ketones Urine Blood Urine Nitrite Ur Leukocyte Esterase Urine WBC (Auto) Urine RBC (Auto) Assessment and Plan - Diagnosis (1) Hypoglycemia associated with type 2 diabetes mellitus Is this a current diagnosis for this admission?: Yes Plan: Likely secondary to accidental additional diabetic medication. IV dextrose, Accu-Cheks every hour, follow-up A1c (2) COPD exacerbation Is this a current diagnosis for this admission?: Yes Plan: Albuterol, Atrovent, supplemental oxygen ordered (3) Hypomagnesemia Is this a current diagnosis for this admission?: Yes Plan: Repletion and reevaluation a.m. chemistry (4) Chronic kidney disease, stage IV (severe) Is this a current diagnosis for this admission?: Yes Plan: Stable at baseline - Time Time Spent with patient: 25-34 minutes - Inpatient Certification Medical Necessity: Need Close Monitoring Due to Risk of Patient Decompensation
[2019-01-12 06:37] LABS: ABSOLUTE EOSINOPHILS # (AUTO) 0.2 10^3/uL (0.0-0.6); ABSOLUTE LYMPHOCYTES (AUTO) 1.1 10^3/uL (0.5-4.7); ABSOLUTE MONOCYTES (AUTO) 1.1 10^3/uL (0.1-1.4); BASOPHILS % (AUTO) 0.4 % (0-2); HEMATOCRIT 30.4 % (36.0-47.0); HEMOGLOBIN 10.1 g/dL (12.0-15.5); LYMPHOCYTES % (AUTO) 14.8 % (13-45); MEAN CORPUSCULAR HEMOGLOBIN 31.1 pg (27.0-33.4); MEAN CORPUSCULAR HGB CONC 33.4 g/dL (32.0-36.0); MEAN CORPUSCULAR VOLUME 93 fl (80-97); MONOCYTES % (AUTO) 14.3 % (3-13); PLATELET COUNT 202 10^3/uL (150-450); RED BLOOD COUNT 3.26 10^6/uL (3.72-5.28); SEGMENTED NEUTROPHILS % (AUTO) 67.5 % (42-78); TOTAL CELLS COUNTED % (AUTO) 100 %; WHITE BLOOD COUNT 7.5 10^3/uL (4.0-10.5)
[2019-01-12 06:43] LABS: ANION GAP 6 (5-19); BLOOD UREA NITROGEN 39 mg/dL (7-20); CALCIUM 8.6 mg/dL (8.4-10.2); CARBON DIOXIDE 24 mmol/L (22-30); CHLORIDE 108 mmol/L (98-107); GLUCOSE 153 mg/dL (75-110); POTASSIUM 4.3 mmol/L (3.6-5.0)
[2019-01-12] MEDS: IPRATROPIUM/ALBUTEROL 0.5-2.5 MG/3 ML AMPUL NEB PRN (08:11)
[2019-01-12] MEDS: DOCUSATE SODIUM 100 MG CAPSULE PO SCH ×2 (10:00→18:15)
[2019-01-12] MEDS ORDERED: DEXTROSE 50%-WATER 25 GM/50 ML DISP.SYRIN IV PRN ×2 (10:51)
[2019-01-12] MEDS ORDERED: GLUCAGON,HUMAN RECOMB 1 MG INJ IM PRN (10:51)
[2019-01-12] MEDS ORDERED: DEXTROSE 40% GEL 15 GM TUBE PO PRN ×2 (10:51)
[2019-01-12] MEDS: INSULIN LISPRO 100 UNIT/ML 3 ML VIAL SUBCUT SCH ×3 (11:00→21:19)
[2019-01-12 12:18] LABS: FREE T3 3.5 pg/mL (2.77-5.27); FREE T4 (FREE THYROXINE) 1.12 ng/dL (0.78-2.19)
--- NOTE | 2019-01-12 13:25 | PDOC PROGRESS REPORT ---
Subjective Progress Note for:: 01/12/19 Subjective:: EVE PATRICIO is a 83 year old female with a past medical history of hypertension, CKD 4, diabetes, coronary artery disease and COPD with chronic bronchitis. She presents with hypoglycemia of 31 at home in the emergency room is found in the 60s. She denies recent change in diet or medication regiment. She otherwise complains of chronic wheeze. She is referred to the hospitalist for admission. 01/12/2019. Patient comfortably sitting in bed enjoying her lunch, feeling much better than yesterday, denies any fever, chills, nausea, vomiting, diarrhea, constipation or any urinary symptoms. Blood glucose level has been running between 64-264. Patient stated that since Sunday she has had low appetite, food does not seem to taste the same, has not been taking a lot of p.o. intake, and has been having unpredictable blood glucose level, he needed to high or too low. Reason For Visit: HYPOGLYCEMIA Physical Exam Vital Signs: Temp Pulse Resp BP Pulse Ox 97.3 F 67 16 125/44 L 96 01/12/19 00:48 01/12/19 08:11 01/12/19 08:11 01/12/19 03:26 01/12/19 08:11 Intake & Output 01/11/19 01/12/19 01/13/19 06:59 06:59 06:59 Intake Total 1100 Balance 1100 Weight 68.4 kg General appearance: PRESENT: no acute distress, obese, well-developed, well- nourished Head exam: PRESENT: atraumatic, normocephalic Eye exam: PRESENT: conjunctiva pink, EOMI, PERRLA. ABSENT: scleral icterus Ear exam: PRESENT: normal external ear exam Mouth exam: PRESENT: moist, tongue midline Neck exam: ABSENT: carotid bruit, JVD, lymphadenopathy, thyromegaly Respiratory exam: PRESENT: clear to auscultation danielle. ABSENT: rales, rhonchi, wheezes Cardiovascular exam: PRESENT: RRR. ABSENT: diastolic murmur, rubs, systolic murmur Pulses: PRESENT: normal dorsalis pedis pul Vascular exam: PRESENT: normal capillary refill GI/Abdominal exam: PRESENT: normal bowel sounds, soft. ABSENT: distended, guarding, mass, organolmegaly, rebound, tenderness Rectal exam: PRESENT: deferred Extremities exam: PRESENT: full ROM. ABSENT: calf tenderness, clubbing, pedal edema Neurological exam: PRESENT: alert, awake, oriented to person, oriented to place, oriented to time, oriented to situation, CN II-XII grossly intact. ABSENT: motor sensory deficit Psychiatric exam: PRESENT: appropriate affect, normal mood. ABSENT: homicidal ideation, suicidal ideation Skin exam: PRESENT: dry, intact, warm. ABSENT: cyanosis, rash Results Laboratory Results: 01/12/19 05:56 01/12/19 05:56 01/11/19 01/11/19 01/11/19 16:06 16:06 16:06 WBC 7.9 RBC 3.65 L Hgb 11.4 L Hct 34.3 L MCV 94 MCH 31.3 MCHC 33.4 RDW 14.4 H Plt Count 234 Seg Neutrophils % 77.6 Sodium 139.5 Potassium 3.6 Chloride 112 H Carbon Dioxide 19 L Anion Gap 9 BUN 40 H Creatinine 1.84 H Est GFR ( Amer) 32 L Glucose 91 Calcium 7.3 L Magnesium Total Bilirubin 0.2 AST 21 Alkaline Phosphatase 40 Total Protein 5.1 L Albumin 2.8 L TSH Free T4 Free T3 pg/mL Urine Color STRAW Urine Appearance CLEAR Urine pH 5.0 Ur Specific [place] 1.009 Urine Protein NEGATIVE Urine Glucose (UA) NEGATIVE Urine Ketones NEGATIVE Urine Blood NEGATIVE Urine Nitrite NEGATIVE Ur Leukocyte Esterase NEGATIVE Urine WBC (Auto) 2 Urine RBC (Auto) 1 01/11/19 01/11/19 01/12/19 16:06 16:06 05:54 WBC RBC Hgb Hct MCV MCH MCHC RDW Plt Count Seg Neutrophils % Sodium Potassium Chloride Carbon Dioxide Anion Gap BUN Creatinine Est GFR ( Amer) Glucose Calcium Magnesium 1.2 L* Total Bilirubin AST Alkaline Phosphatase Total Protein Albumin TSH 6.88 H Free T4 1.12 Free T3 pg/mL 3.50 Urine Color Urine Appearance Urine pH Ur Specific [place] Urine Protein Urine Glucose (UA) Urine Ketones Urine Blood Urine Nitrite Ur Leukocyte Esterase Urine WBC (Auto) Urine RBC (Auto) 01/12/19 01/12/19 05:56 05:56 WBC 7.5 RBC 3.26 L Hgb 10.1 L Hct 30.4 L MCV 93 MCH 31.1 MCHC 33.4 RDW 14.0 Plt Count 202 Seg Neutrophils % 67.5 Sodium 138.0 Potassium 4.3 Chloride 108 H Carbon Dioxide 24 Anion Gap 6 BUN 39 H Creatinine 2.06 H Est GFR ( Amer) 28 L Glucose 153 H Calcium 8.6 Magnesium Total Bilirubin AST Alkaline Phosphatase Total Protein Albumin TSH Free T4 Free T3 pg/mL Urine Color Urine Appearance Urine pH Ur Specific [place] Urine Protein Urine Glucose (UA) Urine Ketones Urine Blood Urine Nitrite Ur Leukocyte Esterase Urine WBC (Auto) Urine RBC (Auto) 01/12/19 05:56 NT-Pro-B Natriuret Pep 1150 H Assessment and Plan - Diagnosis (1) Hypoglycemia Is this a current diagnosis for this admission?: Yes Plan: Reporting anorexia, stating that food does not taste good. Patient reporting labile blood glucose level lately. I suspect patient be experiencing sulfonylurea toxicity due to worsening renal function. Home med is glimepiride 1 mg p.o. daily. Oral hypoglycemics, continue hypoglycemic protocol. (2) Acute kidney injury superimposed on chronic kidney disease Is this a current diagnosis for this admission?: Yes Plan: Creatinine 2.06. Baseline 1.7. Avoid nephrotoxic meds. We will consult search manager. (3) Anemia in chronic kidney disease Qualifiers: Chronic kidney disease stage: stage 4 (severe) Qualified Code(s): N18.4 - Chronic kidney disease, stage 4 (severe); D63.1 - Anemia in chronic kidney disease Is this a current diagnosis for this admission?: Yes Plan: Hemoglobin stable. Daily H&H. (4) Chronic kidney disease, stage IV (severe) Is this a current diagnosis for this admission?: Yes Plan: As per #2. Has established nephrology care as outpatient. (5) Diabetes mellitus type 2 in obese Is this a current diagnosis for this admission?: Yes Plan: Diabetic diet, sliding scale insulin, pre-meal insulin, hypoglycemic protocol, Accu-Chek. Adjust dosage as needed. (6) Hyperlipidemia Qualifiers: Hyperlipidemia type: unspecified Qualified Code(s): E78.5 - Hyperlipidemia, unspecified Is this a current diagnosis for this admission?: Yes (7) Hypertension Qualifiers: Hypertension type: essential hypertension Qualified Code(s): I10 - Essenti al (primary) hypertension Is this a current diagnosis for this admission?: Yes Plan: Normotensive. Euvolemic. Restart home meds.
[2019-01-12] MEDS: TAMOXIFEN CITRATE 10 MG TABLET PO SCH (21:20)
[2019-01-12] MEDS ORDERED: TIOTROPIUM BROMIDE IH SCH (22:00)
[2019-01-12] MEDS ORDERED: CYANOCOBALAMIN (VITAMIN B-12) 1,000 MCG TABLET PO SCH (22:00)
[2019-01-12] MEDS ORDERED: SIMVASTATIN 10 MG TABLET PO SCH (22:00)
[2019-01-12] MEDS ORDERED: ZOLPIDEM TARTRATE 5 MG TABLET PO SCH (22:00)
[2019-01-12] MEDS ORDERED: (PENDING PHARMACY ID) (Simvastatin [Simvastatin] 20 MG) PO SCH (22:00)
[2019-01-13] MEDS ORDERED: LEVOTHYROXINE SODIUM 0.025 MG TABLET PO SCH (06:00)
[2019-01-13 06:10] LABS: ABSOLUTE EOSINOPHILS # (AUTO) 0.3 10^3/uL (0.0-0.6); ABSOLUTE LYMPHOCYTES (AUTO) 1.1 10^3/uL (0.5-4.7); ABSOLUTE MONOCYTES (AUTO) 0.8 10^3/uL (0.1-1.4); ABSOLUTE NEUT (AUTO) 3.6 10^3/uL (1.7-8.2); BASOPHILS % (AUTO) 0.6 % (0-2); EOSINOPHILS % (AUTO) 4.6 % (0-6); HEMATOCRIT 28.2 % (36.0-47.0); HEMOGLOBIN 9.6 g/dL (12.0-15.5); MEAN CORPUSCULAR HEMOGLOBIN 31.8 pg (27.0-33.4); MEAN CORPUSCULAR HGB CONC 34.3 g/dL (32.0-36.0); MEAN CORPUSCULAR VOLUME 93 fl (80-97); PLATELET COUNT 195 10^3/uL (150-450); RED BLOOD COUNT 3.03 10^6/uL (3.72-5.28); SEGMENTED NEUTROPHILS % (AUTO) 62.8 % (42-78); TOTAL CELLS COUNTED % (AUTO) 100 %; WHITE BLOOD COUNT 5.8 10^3/uL (4.0-10.5)
[2019-01-13 06:33] LABS: ALBUMIN 2.7 g/dL (3.5-5.0); ALKALINE PHOSPHATASE 49 U/L (38-126); ANION GAP 5 (5-19); ASPARTATE AMINO TRANSFERASE 18 U/L (14-36); BILIRUBIN,DIRECT 0.1 mg/dL (0.0-0.4); BILIRUBIN,TOTAL 0.2 mg/dL (0.2-1.3); BLOOD UREA NITROGEN 30 mg/dL (7-20); CALCIUM 8.6 mg/dL (8.4-10.2); CARBON DIOXIDE 23 mmol/L (22-30); CHLORIDE 107 mmol/L (98-107); GLUCOSE 111 mg/dL (75-110); POTASSIUM 5.4 mmol/L (3.6-5.0); TOTAL PROTEIN 4.7 g/dL (6.3-8.2)
[2019-01-13] MEDS: HEPARIN SOD (PORCINE) 5,000 UNIT/ML 1 ML VIAL SUBCUT SCH (06:44)
[2019-01-13] MEDS ORDERED: SODIUM POLYSTYRENE SULFONATE 15 GM/60 ML PO ONE ×2 (06:49→10:00)
[2019-01-13] MEDS ORDERED: CALCIUM GLUCONATE 1000 MG/10 ML INJ IV ONE ×2 (06:49→10:00)
[2019-01-13] MEDS: INSULIN LISPRO 100 UNIT/ML 3 ML VIAL SUBCUT SCH ×2 (08:33→12:27)
[2019-01-13] MEDS ORDERED: TIOTROPIUM BROMIDE DPI 5 CAP/KIT (18 MCG/CAP) IH SCH (10:00)
[2019-01-13] MEDS ORDERED: LOSARTAN POTASSIUM 50 MG TABLET PO SCH (10:00)
[2019-01-13] MEDS ORDERED: CHOLECALCIFEROL (D3) 1,000 UNIT (25 MCG) TABLET PO SCH (10:00)
[2019-01-13] MEDS ORDERED: AMLODIPINE BESYLATE 5 MG TABLET PO SCH (10:00)
[2019-01-13] MEDS: DOCUSATE SODIUM 100 MG CAPSULE PO SCH (12:18)
[2019-01-13] MEDS: TAMOXIFEN CITRATE 10 MG TABLET PO SCH (12:20)
[2019-01-13 15:01] VITALS: BP 124/63
--- NOTE | 2019-01-15 13:57 | PDOC DISCHARGE SUMMARY ---
General - Admit/Disc Date/PCP Admission Date/Primary Care Provider: 01/11/19 21:28 ANNA SANDHU MD Discharge Date: 01/13/19 - Discharge Diagnosis (1) Hypoglycemia Is this a current diagnosis for this admission?: Yes (2) Acute kidney injury superimposed on chronic kidney disease Is this a current diagnosis for this admission?: Yes (3) Anemia in chronic kidney disease Is this a current diagnosis for this admission?: Yes (4) Chronic kidney disease, stage IV (severe) Is this a current diagnosis for this admission?: Yes (5) Diabetes mellitus type 2 in obese Is this a current diagnosis for this admission?: Yes (6) Hyperlipidemia Is this a current diagnosis for this admission?: Yes (7) Hypertension Is this a current diagnosis for this admission?: Yes - Additional Information Resuscitation Status: Full Code Discharge Diet: Other (Comments) Discharge Activity: Activity As Tolerated, Balance Activity w/Rest Home Medications: Zolpidem Tartrate 5 mg PO QHS 11/15/ Simvastatin 20 mg PO QHS 09/29/13 Tamoxifen Citrate 10 mg PO Q12 06/11/15 Cholecalciferol (Vitamin D3) [Vitamin D3 1000 Unit Tablet] 1,000 unit PO DAILY 12/04/18 Cyanocobalamin (Vitamin B-12) [Vitamin B-12 1000 mcg Tablet] 500 mcg PO QHS 12/04/18 Ipratropium/Albuterol Sulfate [Duoneb 3 ml Ampul] 3 ml NEB QIDP PRN 12/04/18 Levothyroxine Sodium [Synthroid 0.025 mg Tablet] 0.025 mg PO Q6AM 12/04/18 Meloxicam [Mobic 15 mg Tablet] 15 mg PO DAILY 12/04/18 Nystatin [Nystop] 1 applic TOP BIDP PRN 12/04/18 Pantoprazole Sodium [Protonix [address] Tablet] 40 mg PO QAM 12/04/18 Amlodipine Besylate [Norvasc 5 mg Tablet] 5 mg PO DAILY 01/12/19 Hydrochlorothiazide 12.5 mg PO DAILY 01/12/19 Losartan Potassium 50 mg PO DAILY 01/12/19 Tiotropium [place] [Spiriva Respimat] 2 inh IH QHS 01/12/19 History of Present Illness History of Present Illness: EVE PATRICIO is a 83 year old female with a past medical history of hypertension, CKD 4, diabetes, coronary artery disease and COPD with chronic bronchitis. She presents with hypoglycemia of 31 at home in the emergency room is found in the 60s. She denies recent change in diet or medication regiment. She otherwise complains of chronic wheeze. She is referred to the hospitalist for admission. Hospital Course Hospital Course: (1) Hypoglycemia Reporting anorexia, stating that food does not taste good. Patient reporting labile blood glucose level lately. I suspect patient be experiencing sulfonylurea toxicity due to worsening renal function. Home med is glimepiride 1 mg p.o. daily. She was admitted to [facility], was placed on hypglycemia protocol. Hypoglycemia resolved. Her oral hypoglycemics were held. Patients A1c is 6.1%. She was asked to hold her oral hypoglycemics untill re-julianne luated by PCP. Pt has Diabetic supplies at home and states that she checks her BGL very often. I was able to talk to Dr Sandhu her Field Manager, who stated that he renal function were at baseline and she will follow up with her as out patient. (2) Acute kidney injury superimposed on chronic kidney disease Creatinine 2.06. Baseline 1.7. Avoid nephrotoxic meds. I was able to talk to Dr Sandhu her Field Manager, who stated that he renal function were at baseline and she will follow up with her as out patient. (3) Anemia in chronic kidney disease Hemoglobin stable. Daily H&H. (4) Chronic kidney disease, stage IV (severe) As per #2. Has established nephrology care as outpatient. I was able to talk to Dr Sandhu her Field Manager, who stated that he renal function were at baseline and she will follow up with her as out patient. (5) Diabetes mellitus type 2 in obese Diabetic diet, sliding scale insulin, pre-meal insulin, hypoglycemic protocol, Accu-Chek. (6) Hyperlipidemia Restarted on home meds and diet and life style modifications recommended. (7) Hypertension Normotensive. Euvolemic. Restart home meds. Physical Exam Vital Signs: Temp Pulse Resp BP Pulse Ox 98.4 F 87 14 124/63 98 01/13/19 14:58 01/13/19 14:58 01/13/19 14:58 01/13/19 14:58 01/13/19 14:58 General appearance: PRESENT: no acute distress, well-developed, well-nourished Head exam: PRESENT: atraumatic, normocephalic Eye exam: PRESENT: conjunctiva pink, EOMI, PERRLA. ABSENT: scleral icterus Ear exam: PRESENT: normal external ear exam Mouth exam: PRESENT: moist, tongue midline Neck exam: ABSENT: carotid bruit, JVD, lymphadenopathy, thyromegaly Respiratory exam: PRESENT: clear to auscultation danielle. ABSENT: rales, rhonchi, wheezes Cardiovascular exam: PRESENT: RRR. ABSENT: diastolic murmur, rubs, systolic murmur Pulses: PRESENT: normal dorsalis pedis pul Vascular exam: PRESENT: normal capillary refill GI/Abdominal exam: PRESENT: normal bowel sounds, soft. ABSENT: distended, guarding, mass, organolmegaly, rebound, tenderness Rectal exam: PRESENT: deferred Extremities exam: PRESENT: full ROM. ABSENT: calf tenderness, clubbing, pedal edema Neurological exam: PRESENT: alert, awake, oriented to person, oriented to place, oriented to time, oriented to situation, CN II-XII grossly intact. ABSENT: motor sensory deficit Psychiatric exam: PRESENT: appropriate affect, normal mood. ABSENT: homicidal ideation, suicidal ideation Skin exam: PRESENT: dry, intact, warm. ABSENT: cyanosis, rash Results Laboratory Results: 01/13/19 05:58 01/13/19 13:22 01/12/19 05:56 NT-Pro-B Natriuret Pep 1150 H Qualifiers - * PATIENT BEING DISCHARGED WITH ANY OF THE FOLLOWING DIAGNOSIS: No Acute Heart Failure - Is this a Heart Failure Patient?: No
== END 2019-01-13 15:53 | disposition home or self-care (01) ==
LOC: ER 14:52 → EH 21:28 → 5 01-12 00:01
PROVIDERS: ADMIT Internal Medicine; ATTEND Internal Medicine
DX: E11.649 Type 2 diabetes mellitus with hypoglycemia without coma (principal); E11.22 Type 2 diabetes mellitus with diabetic chronic kidney disease; I12.9 Hypertensive chronic kidney disease with stage 1 through stage 4 chronic kidney disease, or unspecified chronic kidney disease; N17.9 Acute kidney failure, unspecified; N18.4 Chronic kidney disease, stage 4 (severe); D63.1 Anemia in chronic kidney disease; E78.5 Hyperlipidemia, unspecified; E66.9 Obesity, unspecified; J44.1 Chronic obstructive pulmonary disease with (acute) exacerbation; I25.10 Atherosclerotic heart disease of native coronary artery without angina pectoris; F50.89 Other specified eating disorder; R43.8 Other disturbances of smell and taste; E03.9 Hypothyroidism, unspecified; E83.42 Hypomagnesemia; R61 Generalized hyperhidrosis; Z92.3 Personal history of irradiation; R20.0 Anesthesia of skin; R20.2 Paresthesia of skin; Z92.21 Personal history of antineoplastic chemotherapy; Z90.12 Acquired absence of left breast and nipple; Z87.891 Personal history of nicotine dependence; Z79.899 Other long term (current) drug therapy; Z79.84 Long term (current) use of oral hypoglycemic drugs; Z82.49 Family history of ischemic heart disease and other diseases of the circulatory system; Z77.098 Contact with and (suspected) exposure to other hazardous, chiefly nonmedicinal, chemicals
CPT/HCPCS: 99285; 96365; 36415 ×3; 84439; 82962 ×3; 83605; 83735; 84132; 84443; 85025 ×3; 80048; 80053 ×2; 81001; 84481; 83036; 83880; 94640; G0378 ×3; A9270 ×11; J0610; J1644 ×2; J3490 ×2; J3475 ×2; J3480; J7620

== ENCOUNTER → 2019-01-30 | Outpatient (CLI) | payer MEDICARE, MEDICAID ==
[2019-01-30 08:43] LABS: ABSOLUTE EOSINOPHILS # (AUTO) 0.3 10^3/uL (0.0-0.6); ABSOLUTE LYMPHOCYTES (AUTO) 0.8 10^3/uL (0.5-4.7); ABSOLUTE MONOCYTES (AUTO) 0.6 10^3/uL (0.1-1.4); ABSOLUTE NEUT (AUTO) 2.9 10^3/uL (1.7-8.2); BASOPHILS % (AUTO) 0.8 % (0-2); EOSINOPHILS % (AUTO) 6.3 % (0-6); HEMATOCRIT 30.9 % (36.0-47.0); HEMOGLOBIN 10.5 g/dL (12.0-15.5); LYMPHOCYTES % (AUTO) 16.6 % (13-45); MEAN CORPUSCULAR HEMOGLOBIN 31.6 pg (27.0-33.4); MEAN CORPUSCULAR VOLUME 93 fl (80-97); PLATELET COUNT 238 10^3/uL (150-450); RED BLOOD COUNT 3.32 10^6/uL (3.72-5.28); RED CELL DISTRIBUTION WIDTH 13.9 % (11.5-14.0); SEGMENTED NEUTROPHILS % (AUTO) 63.3 % (42-78); TOTAL CELLS COUNTED % (AUTO) 100 %; WHITE BLOOD COUNT 4.6 10^3/uL (4.0-10.5)
[2019-01-30 08:51] LABS: APPEARANCE,URINE CLEAR; BILIRUBIN,URINE NEGATIVE (NEGATIVE); COLOR,URINE YELLOW; GLUCOSE, URINE NEGATIVE (NEGATIVE); KETONES,URINE NEGATIVE (NEGATIVE); LEUKOCYTE ESTERASE,URINE NEGATIVE (NEGATIVE); NITRITE,URINE NEGATIVE (NEGATIVE); PROTEIN,URINE NEGATIVE (NEGATIVE); URINE SPECIFIC GRAVITY 1.011; UROBILINOGEN,URINE NEGATIVE mg/dL (<2.0)
[2019-01-30 09:05] LABS: ALBUMIN 3.7 g/dL (3.5-5.0); ANION GAP 9 (5-19); BLOOD UREA NITROGEN 45 mg/dL (7-20); CALCIUM 9.7 mg/dL (8.4-10.2); CARBON DIOXIDE 26 mmol/L (22-30); CHLORIDE 103 mmol/L (98-107); GLUCOSE 127 mg/dL (75-110); PHOSPHORUS 3.2 mg/dL (2.5-4.5); POTASSIUM 4.5 mmol/L (3.6-5.0)
[2019-01-31 12:37] LABS: CREATININE URINE 86.2 mg/dL (Not Estab.); MICROALBUMIN URINE 10.7 ug/mL (Not Estab.)
== END ==
LOC: OD 07:57
PROVIDERS: ATTEND Internal Medicine Nephrology
DX: I12.9 Hypertensive chronic kidney disease with stage 1 through stage 4 chronic kidney disease, or unspecified chronic kidney disease (principal); N18.4 Chronic kidney disease, stage 4 (severe); E11.22 Type 2 diabetes mellitus with diabetic chronic kidney disease; R80.9 Proteinuria, unspecified; D63.1 Anemia in chronic kidney disease
CPT/HCPCS: 36415; 80069; 81001; 82043; 82306; 82570; 83970; 85025

== ENCOUNTER → 2019-05-08 | Outpatient (CLI) | payer MEDICARE, MEDICAID ==
[2019-05-08 08:52] LABS: ABSOLUTE EOSINOPHILS # (AUTO) 0.1 10^3/uL (0.0-0.6); ABSOLUTE MONOCYTES (AUTO) 0.6 10^3/uL (0.1-1.4); ABSOLUTE NEUT (AUTO) 5.1 10^3/uL (1.7-8.2); BASOPHILS % (AUTO) 0.5 % (0-2); EOSINOPHILS % (AUTO) 2.2 % (0-6); HEMATOCRIT 34.4 % (36.0-47.0); HEMOGLOBIN 11.5 g/dL (12.0-15.5); MEAN CORPUSCULAR HEMOGLOBIN 31.8 pg (27.0-33.4); MEAN CORPUSCULAR HGB CONC 33.4 g/dL (32.0-36.0); MEAN CORPUSCULAR VOLUME 95 fl (80-97); MONOCYTES % (AUTO) 9.4 % (3-13); PLATELET COUNT 228 10^3/uL (150-450); RED BLOOD COUNT 3.62 10^6/uL (3.72-5.28); RED CELL DISTRIBUTION WIDTH 14.3 % (11.5-14.0); SEGMENTED NEUTROPHILS % (AUTO) 73.9 % (42-78); TOTAL CELLS COUNTED % (AUTO) 100 %; WHITE BLOOD COUNT 6.9 10^3/uL (4.0-10.5)
[2019-05-08 10:03] LABS: ANION GAP 10 (5-19); BLOOD UREA NITROGEN 39 mg/dL (7-20); CARBON DIOXIDE 23 mmol/L (22-30); CHLORIDE 106 mmol/L (98-107); GLUCOSE 109 mg/dL (75-110); IRON(TIBC) 105.2 ug/dL (37-170)
== END ==
LOC: OD 08:19
PROVIDERS: ATTEND Internal Medicine Nephrology
DX: I12.9 Hypertensive chronic kidney disease with stage 1 through stage 4 chronic kidney disease, or unspecified chronic kidney disease (principal); N18.4 Chronic kidney disease, stage 4 (severe); E11.22 Type 2 diabetes mellitus with diabetic chronic kidney disease; D63.1 Anemia in chronic kidney disease
CPT/HCPCS: 36415; 80048; 82728; 83540; 83550; 85025

== ENCOUNTER 2019-08-21 09:52 | Emergency (ER) | payer MEDICARE, MEDICAID ==
[2019-08-21 10:02] VITALS: BP 155/73
[2019-08-21] MEDS ORDERED: DIPHENHYDRAMINE HCL 50 MG/ML VIAL IM ONE (10:17)
[2019-08-21] MEDS ORDERED: METHYLPREDNISOLONE INJ 125 MG/2 ML SDV IM ONE (10:18)
--- NOTE | 2019-08-21 10:23 | ER Document Report ---
ED General - General Stated Complaint: POSSIBLE ALLERGIC REACTION Primary Care Provider: ANNA SANDHU MD [ACTIVE STAFF] - Follow up as needed JONES THOMPSON MD [ACTIVE STAFF] - Follow up as needed Mode of Arrival: Ambulatory Information source: Patient TRAVEL OUTSIDE OF THE [place] IN LAST 30 DAYS: No - HPI Notes: 84-year-old female with a history of COPD presents emergency room for itching on her face and hands for the last month since using new hand polishing wheel setter and hand wipes. Patient also thinks that she has an allergy from the latex that was on a bandage on her left upper chest from where she had a lesion removed that was suspected to be cancerous by her PCP. Patient thinks she has had an allergic reaction from the hand wipes and possible latax from bandage, was seen by her primary care provider started her on cetirizine and prednisone but advised her to come to the ER for a "shot". States that she has had an itchy red rash. Patient states she has COPD which causes her to get short of breath, states she has not had any new shortness of breath. Denies fevers, chills, chest pain,palpitations, dyspnea, nausea, vomiting, diarrhea, abdominal pain, hematur ia,speech changes, LH, dizziness, syncope, headaches, wheezing, ST, URI, neck pain, weakness, bowel or bladder dysfunction, saddle anesthesia, numbness or tingling in bilateral upper or lower extremities equally, muscle paralysis, weakness in bilateral upper or lower extremities equally. - Related Data Allergies/Adverse Reactions: ceftriaxone sodium [From Rocephin] Allergy (Severe, Verified 01/11/19 14:57) neomycin [Neomycin] Allergy (Severe, Verified 01/11/19 14:57) nitrofurantoin [From Macrobid] Allergy (Severe, Verified 01/11/19 14:57) Sulfa (Sulfonamide Antibiotics) Allergy (Severe, Verified 01/11/19 14:57) Past Medical History - General Information source: Patient - Social History Smoking Status: Former Smoker Family History: CAD, DM, Hypertension, Malignancy - Past Medical History Cardiac Medical History: Reports: Hx Coronary Artery Disease, Hx Hypercholesterolemia, Hx Hypertension Denies: Hx Heart Attack Pulmonary Medical History: Reports: Hx Asthma, Hx Bronchitis, Hx COPD Denies: Hx Pneumonia Neurological Medical History: Denies: Hx Cerebrovascular Accident, Hx Seizures Endocrine Medical History: Reports: Hx Diabetes Mellitus Type 2, Hx Hypothyroidism. Denies: Hx Diabetes Mellitus Type 1, Hx Hyperthyroidism Renal/ Medical History: Reports: Hx End Stage Renal Disease - stg 4. Denies: Hx Peritoneal Dialysis Malignancy Medical History: Reports: Hx Breast Cancer - Status post chemotherapy and radiation GI Medical History: Reports: Hx Gastroesophageal Reflux Disease. Denies: Hx Cirrhosis, Hx Crohn's Disease, Hx Hepatitis, Hx Ulcerative Colitis Musculoskeletal Medical History: Reports Hx Arthritis, Denies Hx Fibromyalgia, Denies Hx Gout Skin Medical History: Denies Hx Eczema, Denies Hx Psoriasis Psychiatric Medical History: Reports: Hx Depression Infectious Medical History: Denies: Hx Hepatitis Past Surgical History: Reports: Hx Section - X2, Hx Hysterectomy, Hx Mastectomy - Left breast cancer: Left lumpectomy and lymph node dissection, Hx Orthopedic Surgery - Toes of left foot - Immunizations Hx Diphtheria, Pertussis, Tetanus Vaccination: Yes Hx Pneumococcal Vaccination: 02/29/12 Review of Systems - Review of Systems Constitutional: No symptoms reported EENT: No symptoms reported Cardiovascular: No symptoms reported Respiratory: No symptoms reported Gastrointestinal: No symptoms reported Genitourinary: No symptoms reported Female Genitourinary: No symptoms reported Musculoskeletal: No symptoms reported Skin: See HPI Hematologic/Lymphatic: No symptoms reported Neurological/Psychological: No symptoms reported Physical Exam - Vital signs Vitals: Temp Pulse Resp BP Pulse Ox 98.1 F 66 18 155/73 H 96 08/21/19 09:59 08/21/19 09:59 08/21/19 09:59 08/21/19 09:59 08/21/19 09:59 - Notes Notes: PHYSICAL EXAMINATION: reviewed vital signs by RN GENERAL: Well-appearing, well-nourished and in no acute distress. HEAD: Atraumatic, normocephalic. EYES: Pupils equal round and reactive to light, extraocular movements intact, conjunctiva are normal. ENT: Nares patent, oropharynx clear without exudates. Moist mucous membranes. NECK: Normal range of motion, supple without lymphadenopathy LUNGS: Breath sounds clear to auscultation bilaterally and equal. No wheezes rales or rhonchi. HEART: Regular rate and rhythm without murmurs ABDOMEN: Soft, nontender, nondistended abdomen. No guarding, no rebound. No masses appreciated. Female : deferred Musculoskeletal: Normal range of motion, no pitting or edema. No cyanosis. NEUROLOGICAL: Cranial nerves grossly intact. Normal speech, normal gait. Normal sensory, motor exams PSYCH: Normal mood, normal affect. SKIN: Warm, Dry, normal turgor, no rashes or lesions noted. Course - Re-evaluation Re-evalutation: 08/21/19 11:21 Patient presents with symptoms consistent with an allergic reaction without anaphylaxis. Only cutaneous involvement with multiple areas of hives. Vitals otherwise within normal limits at time of arrival. No respiratory, GI, cardiovascular, or oral pharyngeal symptoms. 125 mg Solu-Medrol and 50 mg of Benadryl given IM. this did resolve the majority of the patient's hives. Will recommend ongoing antihistamine therapy as an outpatient. At this time will discharge with return precautions and follow-up recommendations. Verbal discharge instructions given a the bedside and opportunity for questions given. Medication warnings reviewed. Patient is in agreement with this plan and has verbalized understanding of return precautions and the need for primary care follow-up in the next 24-72 hours. - Vital Signs Vital signs: Temp Pulse Resp BP Pulse Ox 98.1 F 66 18 155/73 H 96 08/21/19 10:17 08/21/19 09:59 08/21/19 09:59 08/21/19 09:59 08/21/19 09:59 Discharge - Discharge Clinical Impression: Allergic reaction Condition: Stable Disposition: HOME, SELF-CARE Instructions: Acute Allergic Reaction ([facility]) Additional Instructions: You were given a shot of Benadryl, a shot of Solu-Medrol for any itchy rash. You can continue to take cetirizine 10mg up to 3 times daily as needed for itching and Vistaril if the itching becomes worse. IF YOU DEVELOP DIFFICULTY BREATHING, SPREADING OF HIVES, VOMITING, LIGHTHEADEDNESS, IMMEDIATELY AND CALL 911. Please follow-up with your primary care physician in the next 1-2 days. Please take Vistaril as prescribed as well as continuing your oral prednisone. Please follow-up with your doctor within the next 24 hours. If you experience any shortness of breath Return immediately for any new or worsening symptoms. Follow up with primary care provider, call tomorrow to make followup appointment. Prescriptions: Hydroxyzine Pamoate [Vistaril] 25 mg PO TID PRN #20 capsule PRN Reason: Referrals: ANNA SANDHU MD [ACTIVE STAFF] - Follow up as needed JONES THOMPSON MD [ACTIVE STAFF] - Follow up as needed
== END 2019-08-21 10:58 | disposition home or self-care (01) ==
LOC: ER 09:52
DX: T78.40XA Allergy, unspecified, initial encounter (principal); L50.9 Urticaria, unspecified; X58.XXXA Exposure to other specified factors, initial encounter; J44.9 Chronic obstructive pulmonary disease, unspecified; I25.10 Atherosclerotic heart disease of native coronary artery without angina pectoris; I10 Essential (primary) hypertension; E11.9 Type 2 diabetes mellitus without complications; Z92.3 Personal history of irradiation; Z98.890 Other specified postprocedural states; Z87.891 Personal history of nicotine dependence; Z85.3 Personal history of malignant neoplasm of breast; Z92.21 Personal history of antineoplastic chemotherapy; Z88.1 Allergy status to other antibiotic agents; Z88.2 Allergy status to sulfonamides
CPT/HCPCS: 99283; 96372; J1200; J2930

== ENCOUNTER → 2019-09-17 | Outpatient (CLI) | payer MEDICARE, MEDICAID ==
[2019-09-17 09:03] LABS: ABSOLUTE EOSINOPHILS # (AUTO) 0.1 10^3/uL (0.0-0.6); ABSOLUTE LYMPHOCYTES (AUTO) 1.2 10^3/uL (0.5-4.7); ABSOLUTE MONOCYTES (AUTO) 0.7 10^3/uL (0.1-1.4); ABSOLUTE NEUT (AUTO) 4.6 10^3/uL (1.7-8.2); BASOPHILS % (AUTO) 0.6 % (0-2); EOSINOPHILS % (AUTO) 1.2 % (0-6); HEMATOCRIT 35.5 % (36.0-47.0); HEMOGLOBIN 12.2 g/dL (12.0-15.5); LYMPHOCYTES % (AUTO) 18.4 % (13-45); MEAN CORPUSCULAR HEMOGLOBIN 32.5 pg (27.0-33.4); MEAN CORPUSCULAR HGB CONC 34.4 g/dL (32.0-36.0); MEAN CORPUSCULAR VOLUME 94 fl (80-97); MONOCYTES % (AUTO) 10.7 % (3-13); PLATELET COUNT 273 10^3/uL (150-450); RED BLOOD COUNT 3.76 10^6/uL (3.72-5.28); RED CELL DISTRIBUTION WIDTH 14.4 % (11.5-14.0); SEGMENTED NEUTROPHILS % (AUTO) 69.1 % (42-78); TOTAL CELLS COUNTED % (AUTO) 100 %; WHITE BLOOD COUNT 6.6 10^3/uL (4.0-10.5)
[2019-09-17 09:12] LABS: APPEARANCE,URINE CLOUDY; BILIRUBIN,URINE NEGATIVE (NEGATIVE); COLOR,URINE YELLOW; GLUCOSE, URINE NEGATIVE (NEGATIVE); KETONES,URINE NEGATIVE (NEGATIVE); LEUKOCYTE ESTERASE,URINE LARGE (NEGATIVE); NITRITE,URINE NEGATIVE (NEGATIVE); PROTEIN,URINE NEGATIVE (NEGATIVE); URINE SPECIFIC GRAVITY 1.012; UROBILINOGEN,URINE NEGATIVE mg/dL (<2.0)
[2019-09-17 09:32] LABS: ALBUMIN 3.9 g/dL (3.5-5.0); ANION GAP 10 (5-19); BLOOD UREA NITROGEN 47 mg/dL (7-20); CALCIUM 9.8 mg/dL (8.4-10.2); CARBON DIOXIDE 25 mmol/L (22-30); CHLORIDE 104 mmol/L (98-107); GLUCOSE 139 mg/dL (75-110); IRON(TIBC) 89.9 ug/dL (37-170); PHOSPHORUS 3.9 mg/dL (2.5-4.5); POTASSIUM 4.2 mmol/L (3.6-5.0)
[2019-09-18 10:36] LABS: CREATININE URINE 65.2 mg/dL (Not Estab.); MICROALBUMIN URINE 70.3 ug/mL (Not Estab.)
== END ==
LOC: OD 08:10
PROVIDERS: ATTEND Internal Medicine Nephrology
DX: I12.9 Hypertensive chronic kidney disease with stage 1 through stage 4 chronic kidney disease, or unspecified chronic kidney disease (principal); N18.4 Chronic kidney disease, stage 4 (severe); E11.22 Type 2 diabetes mellitus with diabetic chronic kidney disease; D63.1 Anemia in chronic kidney disease; N39.0 Urinary tract infection, site not specified
CPT/HCPCS: 36415; 80069; 81001; 82043; 82306; 82570; 82728; 83540; 83550; 83970; 85025

== ENCOUNTER → 2019-11-26 | Outpatient (CLI) | payer MEDICARE, MEDICAID ==
[2019-11-26 09:41] LABS: ABSOLUTE EOSINOPHILS # (AUTO) 0.1 10^3/uL (0.0-0.6); ABSOLUTE LYMPHOCYTES (AUTO) 1.2 10^3/uL (0.5-4.7); ABSOLUTE MONOCYTES (AUTO) 0.6 10^3/uL (0.1-1.4); ABSOLUTE NEUT (AUTO) 5.2 10^3/uL (1.7-8.2); BASOPHILS % (AUTO) 0.6 % (0-2); EOSINOPHILS % (AUTO) 1.9 % (0-6); HEMATOCRIT 34.9 % (36.0-47.0); HEMOGLOBIN 11.5 g/dL (12.0-15.5); MEAN CORPUSCULAR HEMOGLOBIN 31.8 pg (27.0-33.4); MEAN CORPUSCULAR HGB CONC 33.1 g/dL (32.0-36.0); MEAN CORPUSCULAR VOLUME 96 fl (80-97); MONOCYTES % (AUTO) 8.5 % (3-13); PLATELET COUNT 242 10^3/uL (150-450); RED BLOOD COUNT 3.62 10^6/uL (3.72-5.28); RED CELL DISTRIBUTION WIDTH 14.4 % (11.5-14.0); TOTAL CELLS COUNTED % (AUTO) 100 %; WHITE BLOOD COUNT 7.2 10^3/uL (4.0-10.5)
[2019-11-26 09:58] LABS: UR PRO/CREAT RATIO RESULT 0.4 mg/mg (0.0-0.2); URINE CREATININE 37.5 mg/dL (15-278); URINE PROTEIN 14.4 mg/dL (<12)
[2019-11-26 10:00] LABS: ANION GAP 7 (5-19); BLOOD UREA NITROGEN 26 mg/dL (7-20); CARBON DIOXIDE 27 mmol/L (22-30); CHLORIDE 105 mmol/L (98-107); GLUCOSE 115 mg/dL (75-110); POTASSIUM 3.8 mmol/L (3.6-5.0)
== END ==
LOC: OD 08:42
PROVIDERS: ATTEND Internal Medicine Nephrology
DX: N18.4 Chronic kidney disease, stage 4 (severe) (principal)
CPT/HCPCS: 36415; 80048; 82570; 84156; 85025

== ENCOUNTER → 2020-04-05 | Outpatient (CLI) | payer MEDICARE, MEDICAID ==
[2020-04-05 11:36] LABS: ABSOLUTE EOSINOPHILS # (AUTO) 0.1 10^3/uL (0.0-0.6); ABSOLUTE LYMPHOCYTES (AUTO) 1.1 10^3/uL (0.5-4.7); ABSOLUTE MONOCYTES (AUTO) 0.6 10^3/uL (0.1-1.4); ABSOLUTE NEUT (AUTO) 4.7 10^3/uL (1.7-8.2); BASOPHILS % (AUTO) 0.5 % (0-2); EOSINOPHILS % (AUTO) 1.2 % (0-6); HEMOGLOBIN 12.3 g/dL (12.0-15.5); LYMPHOCYTES % (AUTO) 16.9 % (13-45); MEAN CORPUSCULAR HEMOGLOBIN 32.4 pg (27.0-33.4); MEAN CORPUSCULAR HGB CONC 34.2 g/dL (32.0-36.0); MEAN CORPUSCULAR VOLUME 95 fl (80-97); MONOCYTES % (AUTO) 8.7 % (3-13); PLATELET COUNT 251 10^3/uL (150-450); RED BLOOD COUNT 3.79 10^6/uL (3.72-5.28); RED CELL DISTRIBUTION WIDTH 14.4 % (11.5-14.0); SEGMENTED NEUTROPHILS % (AUTO) 72.7 % (42-78); TOTAL CELLS COUNTED % (AUTO) 100 %; WHITE BLOOD COUNT 6.4 10^3/uL (4.0-10.5)
[2020-04-05 11:40] LABS: APPEARANCE,URINE SLIGHTLY-CLOUDY; BILIRUBIN,URINE NEGATIVE (NEGATIVE); COLOR,URINE YELLOW; GLUCOSE, URINE NEGATIVE (NEGATIVE); KETONES,URINE NEGATIVE (NEGATIVE); LEUKOCYTE ESTERASE,URINE MODERATE (NEGATIVE); NITRITE,URINE NEGATIVE (NEGATIVE); PROTEIN,URINE 30 mg/dL (NEGATIVE); URINE SPECIFIC GRAVITY 1.016; UROBILINOGEN,URINE NEGATIVE mg/dL (<2.0)
[2020-04-05 11:58] LABS: ALBUMIN 4.4 g/dL (3.5-5.0); IRON(TIBC) 107.4 ug/dL (37-170); PHOSPHORUS 3.7 mg/dL (2.5-4.5)
[2020-04-05 12:17] LABS: ANION GAP 10 (5-19); BLOOD UREA NITROGEN 39 mg/dL (7-20); CALCIUM 10.3 mg/dL (8.4-10.2); CARBON DIOXIDE 26 mmol/L (22-30); CHLORIDE 106 mmol/L (98-107); GLUCOSE 109 mg/dL (75-110); POTASSIUM 4.9 mmol/L (3.6-5.0)
[2020-04-05 12:19] LABS: ANION GAP 10 (5-19); BLOOD UREA NITROGEN 39 mg/dL (7-20); CALCIUM 10.3 mg/dL (8.4-10.2); CARBON DIOXIDE 26 mmol/L (22-30); CHLORIDE 106 mmol/L (98-107); GLUCOSE 109 mg/dL (75-110); POTASSIUM 4.9 mmol/L (3.6-5.0)
[2020-04-06 13:37] LABS: CREATININE URINE 93.3 mg/dL (Not Estab.); MICROALBUMIN URINE 61.3 ug/mL (Not Estab.)
== END ==
LOC: OD 10:57
PROVIDERS: ATTEND Internal Medicine Nephrology
DX: N18.30 Chronic kidney disease, stage 3 unspecified (principal); D63.1 Anemia in chronic kidney disease
CPT/HCPCS: 36415; 80048; 80069; 81001; 82043; 82306; 82570; 82728; 83540; 83550; 83970; 85025